=== PATIENT | male | born 1950 | race Caucasian/White ===

== ENCOUNTER → 2018-05-03 10:24 | Outpatient (CLI) | payer OTHER, SELFPAY | PROVIDERS: Family Provider Internal Medicine; PCP Internal Medicine; Referring Provider Internal Medicine; Visit Provider Internal Medicine | DX: I49.9 Cardiac arrhythmia, unspecified (principal) | CPT/HCPCS: 93225; 93226 ==

== ENCOUNTER → 2018-06-29 07:50 | Outpatient (CLI) | payer OTHER, SELFPAY ==
--- NOTE | 2018-06-29 07:52 | CDU_ITS ---
Reason For Study: Carotid stenosis Rt. Velocities/BP Lt. Velocities/BP Prox CCA 145.0/30.6 cm/sec. Prox CCA 114.0/27.5 cm/sec. Mid CCA 123.0/21.2 cm/sec. Mid CCA 119.0/22.0 cm/sec. Dist CCA 108.0/22.0 cm/sec. Dist CCA 108.0/23.6 cm/sec. Prox ICA 206.0/65.5 cm/sec. Prox ICA 103.0/27.5 cm/sec. Mid ICA 165.0/44.2 cm/sec. Mid ICA 102.0/23.6 cm/sec. Dist ICA 97.9/31.1 cm/sec. Dist ICA 74.6/25.1 cm/sec. Rt. ICA/CCA = 1.7. Lt. ICA/CCA = .87. Prox ECA 127.0/15.7 cm/sec. Prox ECA 99.8/16.5 cm/sec. Rt. Vert. 33.6/6.7 cm/sec. Lt. Vert. 28.3/8.3 cm/sec. Right Extracranial There is intimal thickening but no significant atherosclerotic plaque noted in the right common carotid artery. There is heterogeneous, irregular atherosclerotic plaque noted in the right internal carotid artery. There is intimal thickening but no significant atherosclerotic plaque noted in the right external carotid artery. Antegrade flow is noted in the right vertebral artery. Left Extracranial There is intimal thickening but no significant atherosclerotic plaque noted in the left common carotid artery. There is heterogeneous, irregular atherosclerotic plaque noted in the left internal carotid artery. The atherosclerotic plaque causes acoustic shadowing. There is no significant atherosclerotic plaque noted in the left external carotid artery. Antegrade flow is noted in the left vertebral artery. Procedure Carotid Duplex 14423. Exam performed in department. Interpretation Summary Moderate (50-69%) stenosis right extracranial internal carotid. Mild (<50%) stenosis left extracranial internal carotid. Flow within the vertebral arteries is antegrade bilaterally. Ordering Physician: Gloria Fontana Referring Physician: Gloria Fontana Performed By: Britany Beauchamp RVT
== END ==
PROVIDERS: Family Provider Internal Medicine; PCP Internal Medicine; Referring Provider Internal Medicine; Visit Provider Internal Medicine
DX: I65.23 Occlusion and stenosis of bilateral carotid arteries (principal)
CPT/HCPCS: 93880

== ENCOUNTER → 2018-09-11 08:42 | Outpatient (CLI) | payer OTHER, SELFPAY ==
--- NOTE | 2018-09-11 08:45 | US_ITS ---
STUDY: RENAL ULTRASOUND - COMPLETE REASON FOR EXAM: Male, 68 years old. 3 week history of right flank pain. TECHNIQUE: Ultrasound evaluation of the kidneys was performed with real-time and static shah-scale imaging. COMPARISON: Comparison is made with prior ultrasound the abdomen dated November 11, 2016. FINDINGS: RIGHT KIDNEY: Normal location of the right kidney, which is normal in size. The right kidney measures 11.2 cm x 5.1 cm x 5.3 cm. There is a normal cortex of the right kidney. The renal cortex measures 1.4 cm. There is no right renal mass or cyst. There are no right renal calculi. There is no right hydronephrosis. DISTAL RIGHT URETER: There is non-visualization of the distal right ureter. There is no demonstrated right ureterovesical junction calculus. There is a visualized right ureteral jet. LEFT KIDNEY: Normal location of the left kidney, which is normal in size. The left kidney measures 10.9 cm x 5.5 cm x 4.9 cm. There is a normal cortex of the left kidney. The renal cortex measures 1.6 cm. There is no left renal mass or cyst. There are no left renal calculi. There is no left hydronephrosis. DISTAL LEFT URETER: There is non-visualization of the distal left ureter. There is no demonstrated left ureterovesical junction calculus. There is a visualized left ureteral jet. BLADDER: The distended urinary bladder has a volume of 189 ml. The empty urinary bladder has a volume of 72 ml. There is a normal wall thickness of the distended urinary bladder. There is no demonstrated mass within the urinary bladder. There are no demonstrated bladder calculi. US/Kidney and Bladder IMPRESSION: Normal ultrasound of the kidneys and urinary bladder. Electronically Signed: Faizan Menendez, at 15:50 EDT , Service support ,
== END ==
PROVIDERS: Family Provider Internal Medicine; PCP Internal Medicine; Referring Provider Internal Medicine; Visit Provider Internal Medicine
DX: R10.9 Unspecified abdominal pain (principal)
CPT/HCPCS: 76770

== ENCOUNTER → 2018-10-10 14:26 | Outpatient (CLI) | payer SELFPAY ==
--- NOTE | 2018-10-10 14:30 | CT_ITS ---
STUDY: CARDIAC CALCIUM SCORING - CT CHEST REASON FOR EXAM: Male, 68 years old. Hyperlipidemia. Screening. RADIATION DOSAGE (If Supplied By Facility): CTDIvol = ( 12.19 ) mGy, DLP = ( 219.42 ) mGycm TECHNIQUE: Axial non-enhanced images were acquired through the heart for the sole purpose of measuring coronary artery calcium. Individualized dose optimization techniques were used for this CT. COMPARISON: None. FINDINGS: Visualized surrounding anatomy: Normal. Left Main Coronary Artery: 126 Left Anterior Descending Artery: 806 Left Circumflex Artery: 779 Right Coronary Artery: 29.8 Total Calcium Score: 1740 CT/Limited Chest CT w/CCTA IMPRESSION: A Calcium Score of 1740 places the patient in the approximate 99th percentile, based on the HE data calculator. Please go to: [email or web address].[email or web address] , for a description of the calculator. Electronically Signed: Ron Hicks, at 15:49 EDT Tel , Service support ,
[2018-10-10 14:45] VITALS: BP 149/65; PULSE 61; RESP 14; O2SAT 95; BMI 35.2
--- NOTE | 2018-10-10 17:33 | CA.SCORE ---
Calcium Scoring Date of Study:: 10/10/18 Coronary Calcium Scoring: High-resolution Computed Tomographic imaging of the chest was performed on 10/10/2018 with particular attention paid to the coronary arteries. Images from the examination were analyzed for the presence and extent of coronary artery calcification , using coronary calcium quantification software. The patient tolerated the procedure well and there were no complications. The results of the coronary calcification analysis are provided below. - Findings Left Main (LM): 126 Left Anterior Descending (LAD): 806 Left Circumflex (LCX): 779 Right Coronary Artery (RCA): 29.8 Total Agatston Score: 1,740.8 Percentile Rankin - Percentile rankin%: Greater than 90% of people of the same gender/similar age had the same/lower scores - Conclusion Calcium Scoring Interpretation: Calcium Score Interpretation 0 No identifiable atherosclerotic plaque. Very low cardiovascular disease risk. <5% chance of presence coronary artery disease A Negative Examination 1-10 Minimal Plaque burden. Significant coronary artery disease very unlikely. 11-100 Mild plaque burden. Likely mild or minimal coronary atherosclerosis. 101-400 Moderate plaque burden Moderate non-obstructive coronary artery disease highly likely. Over 400 Extensive plaque burden. High likelihood of at least one significant coronary stenosis (>50% diameter) Calcium Score: >400 High likelihood of at least one significant coronary stenosis - Continue cardiovascular risk factor evaluation care as deemed appropriate
== END ==
PROVIDERS: Family Provider Internal Medicine; PCP Internal Medicine; Referring Provider Internal Medicine; Visit Provider Internal Medicine
DX: E78.5 Hyperlipidemia, unspecified (principal)
CPT/HCPCS: 75571; 76380

== ENCOUNTER → 2018-11-22 14:53 | Outpatient (CLI) | payer OTHER, SELFPAY ==
[2018-11-22 13:29] VITALS: BMI 35.2
[2018-11-22 15:36] LABS: Absolute Lymphocyte Count 1.54 X10^3/uL (0.83-4.51); Absolute Neutrophil Count 4.8 X10^3/uL (2.0-7.7); Basophil# 0.05 X10^3/uL; Basophil% 0.7 % (0-1); Eosinophil# 0.03 X10^3/uL; Eosinophils% 0.4 % (0-5); Hematocrit 51.1 % (40-54); Hemoglobin 17.7 g/dL (13.0-16.5); Lymphocyte # 1.54 X10^3/ul (4.0); Lymphocyte % 22.4 % (19-41); Mean Corp Hgb Conc 34.6 g/dL (32-36); Mean Corpuscular Hgb 30.5 pg (27.0-32.0); Mean Corpuscular Volume 88.1 fL (80-94); Mean Platelet Vol. 9.7 fl (6.2-12.0); Monocyte# 0.37 X10^3/uL; Monocyte% 5.4 % (0-10); NRBC Flagged by Analyzer 0 % (0-5); Neutrophil # 4.82 X10^3/uL (2.7-7.7); Neutrophil % 70.4 % (47-70); Platelet Count 150 K/mm3 (150-450); RBC Distribution Width CV 12.2 % (11.6-14.6); RBC Distribution Width SD 39.6 fl (35.1-43.9); White Blood Count 6.9 K/mm3 (4.4-11.0)
[2018-11-22 16:35] LABS: Anion Gap 9 (5-15); BUN 14 mg/dL (7-18); BUN/Creat Ratio 13.6 RATIO (10-20); Calcium,Total 9.2 mg/dL (8.5-10.1); Chloride 107 mmol/L (98-107); Creatinine, Serum 1.03 mg/dL (0.70-1.30); EST Glomerular Filtration Rate 76 mL/min (>60); Est Glom Filt Rate - Afr Amer 92 mL/min (>60); Glucose 111 mg/dL (74-106); Potassium 4.2 mmol/L (3.5-5.1); Sodium Level 142 mmol/L (136-145)
== END ==
PROVIDERS: Family Provider Internal Medicine; PCP Internal Medicine; Referring Provider Internal Medicine Cardiovascular Disease; Visit Provider Internal Medicine Cardiovascular Disease
DX: R93.1 Abnormal findings on diagnostic imaging of heart and coronary circulation (principal)
CPT/HCPCS: 36415; 80048; 85025

== ENCOUNTER 2018-11-27 10:30 | Day surgery (SDC) | payer OTHER, SELFPAY ==
[2018-11-22 13:29] VITALS: BMI 35.2
--- NOTE | 2018-11-22 14:50 | RAD_ITS ---
STUDY: X-RAY CHEST REASON FOR EXAM: Male, 68 years old. Substernal chest pain TECHNIQUE: PA and lateral views of the chest. COMPARISON: 11/16/2013 FINDINGS: The lungs are clear and expanded. There is no demonstrated pleural abnormality. Normal size heart. Normal mediastinum and reginald. Normal visualized pulmonary arteries. Normal visualized aortic arch and descending thoracic aorta. Normal visualized thoracic spine. Normal visualized ribs, clavicles, and shoulders. There is no demonstrated abnormality of the visualized soft tissue structures of the upper abdomen. RAD/Chest PA and Lateral IMPRESSION: Normal x-ray examination of the chest. Electronically Signed: Brooks Glaser MD at 15:04 EDT , Service support ,
--- NOTE | 2018-11-27 08:50 | HP.PCM_ITS ---
Problem List (1) Stenosis of right carotid artery Status: Chronic (2) Elevated coronary artery calcium score Status: Acute (3) Atherosclerotic heart disease of [place] coronary artery without angina pectoris Status: Chronic (4) Mixed hyperlipidemia Status: Chronic History and Physical Date of Admission: 11/27/18 MR#: [id number] Acct: [id number] Name: ANGELO DÍAZ Rep #: [id number] : 1950 Provider: Lito HERNANDEZ Age/Sex: 68/M Location: [facility] [place] Status: Signed HPI HPI History of Present Illness Details: Pleasant 68-year-old man with a significant family history of coronary artery disease, hyperlipidemia, carotid stenosis, diabetes mellitus who underwent a coronary calcium score as part of his routine physical. He was noted to have a significantly elevated calcium score of over 1700 placing him above the 90th percentile for plaque burden which was at least moderate. He has been on lipid-lowering medication and has been checking his blood pressures at home which have been in the normotensive range. He also had a carotid ultrasound performed with demonstrated moderate 50 to 69% stenosis noted in the right extracranial carotid artery. He is here today for a heart cath. He has had no dizziness or diaphoresis no near syncope or syncope though he has had some shoulder discomfort. Intake Vitals signs: see chart Allergies No Known Allergies Allergy (Verified 11/22/18 13:33) Medications aspirin 81 mg tablet,delayed release 81 mg PO DAILY 11/16/18 [History Confirmed 11/22/18] coenzyme Q10 100 mg capsule 100 mg PO DAILY 11/16/18 [History Confirmed 11/22/18] omega-3 fatty acids 1,000 mg capsule 2,000 mg PO DAILY cap 11/16/18 [History Confirmed 11/22/18] simvastatin 40 mg tablet 40 mg PO QHS 11/16/18 [History Confirmed 11/22/18] arginine HCl (L-arginine) 1,000 mg tablet 2,000 mg PO TID tab 11/22/18 [History Confirmed 11/22/18] cholecalciferol (vitamin D3) 2,000 unit capsule 4,000 unit PO DAILY cap 11/22/18 [History Confirmed 11/22/18] lactobacillus combination no.9 4 billion cell capsule 4,000 mmu cells PO DAILY 11/22/18 [History Confirmed 11/22/18] [facility] Medical History Stenosis of right carotid artery (Chronic) Elevated coronary artery calcium score (Acute) Atherosclerotic heart disease of [place] coronary artery without angina pectoris (Chronic) Mixed hyperlipidemia (Chronic) Obesity (Chronic) Actinic keratosis (Chronic) Bruit of right carotid artery (Chronic) Erectile dysfunction (Chronic) SUSHANT (obstructive sleep apnea) (Chronic) Polycythemia (Chronic) Thrombocytopenia (Chronic) Type 2 diabetes mellitus (Chronic) Arrhythmia (Inactive) Surgical History History of oral surgery (Resolved) History of vasectomy (Resolved) Family History Father Diabetes Heart disease Hypertension High cholesterol COPD (chronic obstructive pulmonary disease) Sister Kidney disease High cholesterol Brother High cholesterol Hypertension SUSHANT (obstructive sleep apnea) Mother Diabetes Heart disease CVA (cerebral vascular accident) TIA (transient ischemic attack) Social History (Updated 11/22/18 @ 14:04 by Jerald Sanchez MD) household members: spouse, other details: adult son current occupational status: retired [email or web address] [place] Smoking Status: Former smoker how long ago did patient quit smokin alcohol intake: current alcohol intake frequency: a few times a month substance use type: does not use caffeine: Yes (2 drinks/day) what type of physical activity do you participate in: none ROS Const Const: Negative for fatigue, weakness, headache(s), frequent falls, difficulty sleeping or excessive sweating Eyes Eyes: Negative for loss of peripheral vision, transient loss of vision, blurry vision, double vision or tunnel vision ENT ENT: Negative for headache(s), dizziness, Nosebleed/epistaxis or balance problems Cardio Chest Pain: No Palpitations: No Edema: None Muscle aches with walking: None Resp Respiratory: Negative for SOB with activity, SOB at rest, SOB orthopnea\SOB lying down, Cough or paroxysmal nocturnal dyspnea GI GI: Negative nausea, vomiting, heartburn or black,tarry stools : Negative for hematuria Musc Musc: Negative for muscle aches/ myalgia, muscle weakness, joint pain or balance problems Skin Skin: Negative non-healing lesions, rash or unusual bruising Neuro Neuro: Negative for dizziness, lightheadedness, near syncope, syncope, orthostatic symptoms, frequent falls, headache(s), weakness, blurry vision, double vision or lack of coordination [place] Hematologic/Lymphatic: Negative for easy bleeding or easy bruising Endo Endo: Negative for fatigue, excessive sweating or increased thirst/drinking Psych Psych: Negative for anxiety or depression Allergy Allergy/Immunology: Negative for hives, Negative for rash Cardiology Exam Const Appearance: cooperative, healthy appearing, no acute distress, well developed and well groomed Nutritional Appearance: average body habitus and well nourished Orientation: alert, awake and oriented x3 Head Head: normal to inspection, normocephalic and atraumatic Ears: hearing grossly normal bilaterally and external ears normal Nose: external nose normal, nares normal, nasal mucous membranes and turbinates normal, septum normal, no nasal discharge Face and Sinus: face symmetric Mouth: oral mucosae normal, tongue normal, oropharynx normal and moist mucous membranes Teeth and gingiva: dentition normal Throat: posterior oropharynx normal, tonsils normal and uvula midline Eyes General: appearance normal, both eyes and all related structures Eyelids: eyelids normal Conjunctivae: conjunctivae normal Pupils: PERRL, normal by confrontation and accommodation normal EOM: EOM intact bilaterally Neck Neck: normal visual inspection, trachea midline and no JVD JVD: +5 Carotids: normal carotid upstroke and bounding pulses Chest Chest inspection: normal inspection of the chest, symmetric chest movement and normal respiratory effort Auscultation: Bilateral: Clear to Auscultation Cardio Palpation: normal PMI Rate: regular rate Rhythm: regular rhythm Heart sounds: S1 normal, S2 normal and normal, physiologic split S2; negative rub, gallop or murmur GI GI: normal to inspection, soft, no hepatosplenomegaly and bowel sounds present Neuro General: alert, awake, oriented x3, gait normal, moves all extremities and no focal sensory deficit Skin Skin: no rashes or lesions noted Extremities Pulses: Normal: Right Femoral Pulse, Left Femoral Pulse, Right Dorsalis Pedis Pulse, Left Dorsalis Pedis Pulse, Right Posterior Tibial Pulse, Left Posterior Tibial Pulse, Right Radial Pulse, Left Radial Pulse Lower Extremity Edema: None: Bilateral Musculoskel Musculoskeletal: No joint tenderness Psych Psychological: normal affect Assessment & Plan Problems 1. Elevated coronary artery calcium score R93.1 Plan He does have a markedly elevated coronary calcium score placing him above the 90th percentile. Since he is a diabetic and his elevated score, will proceed with heart cath. He will continue with his aggressive risk factor modification. He will follow up according after his heart cath
--- NOTE | 2018-11-27 10:39 | CL.D_ITS ---
Patient Name: ANGELO DÍAZ Study Date: 11/27/2018 Performing: Jerald Sanchez MD Ht: 70.07 inches 178 cm : 1950 Wt: 244.71 lbs 111 kg Age: 68 Gender: male BSA: 2.28 PROCEDURE(S) PERFORMED [id number]/LV CLINICAL PROFILE AND INDICATIONS Indications: Suspected CAD Heart Failure: None Stress/Imaging Stress/Image Study Performed: No CAD Presentations: No Sxs, no angina. CONCLUSIONS Dominant left circumflex artery with severe triple-vessel disease involving the proximal to mid LAD, distal LAD, distal circumflex artery and a nondominant right coronary artery all with high-grade sten osis and preserved ejection fraction. RECOMMENDATIONS Surgery consult for coronary revascularization DESCRIPTION OF PROCEDURE The patient arrived to the procedure lab. The risks and benefits of the procedure as well as a full d escription of our services here and current unavailability of surgical backup were fully explained to the patient and/or their significant other prior to the catheterization. The Timeout was completed, verifying the correct patient and procedure. The patient's procedural site was prepped and draped in the usual fashion. Local anesthetic was given subcutaneously to right radial region with Lidocaine 2% . Using a modified Seldinger technique, arterial access was obtained via the right radial artery, a 6 Fr sheath was inserted. Left Coronary Artery selective angiography was performed in multiple views u sing a 5 Fr. 4.0 [place] catheter. Right Coronary Artery selective angiography was then performed in mu ltiple views using a 5 Fr. 4.0 [place] catheter. Left Ventriculography was performed in JOHNSON projection using a 5 Fr. [place] catheter. LV to AO pullback pressures were then recorded.The arterial sheath was pulled and a TR Band was applied for hemostasis CORONARY ANGIOGRAPHY DOMINANCE: Left Dominant LEFT HEART ASSESSMENT Left Ventricular Ejection Fraction: by LV Gram 65 % Normal LV wall motion Normal Left Ventricular systolic function LEFT MAIN: Mild calcification LEFT ANTERIOR DESCENDING ARTERY: MID LAD: 70 % Stenosis, Moderate calcification DISTAL LAD: 75 % Stenosis DIAGONAL 1: Ostial - 80 % Stenosis CIRCUMFLEX ARTERY: OM 3: Proximal - 85 LT PDA: Left PDA: Proximal - 90 % Stenosis RIGHT CORONARY ARTERY: MID RCA: 95 % Stenosis COMPLICATIONS No Complications PROCEDURE MEDICATIONS Fentanyl 50 mcg IV Versed 1 mg IV Oxygen: 2 L/min via nasal cannula SUMMARY OF HEMODYNAMIC DATA Time AIR REST ECG 09:23:12 AO 122/91 (105) SA 10:12:55 LV 137/22, 28 10:21:26 LV 137/21, 24 10:21:33 LV 154/7, 25 10:22:29 LV 158/7, 26 10:22:36 LVp 156/8, 28 10:22:47 AOp 147/85 (111) 10:22:52 Signed By Jerald Sanchez MD On 11/27/2018 10:38:33 Jerald Sanchez MD
== END 2018-11-27 12:40 | disposition home or self-care (01) ==
LOC: CLSP 11-28 16:10
PROVIDERS: Family Provider Internal Medicine; PCP Internal Medicine; Referring Provider Internal Medicine Cardiovascular Disease; Visit Provider Internal Medicine Cardiovascular Disease
DX: I25.10 Atherosclerotic heart disease of native coronary artery without angina pectoris (principal); R93.1 Abnormal findings on diagnostic imaging of heart and coronary circulation; E78.2 Mixed hyperlipidemia; I65.21 Occlusion and stenosis of right carotid artery; E11.9 Type 2 diabetes mellitus without complications; G47.33 Obstructive sleep apnea (adult) (pediatric); N52.9 Male erectile dysfunction, unspecified; D75.1 Secondary polycythemia; Z79.82 Long term (current) use of aspirin; Z82.49 Family history of ischemic heart disease and other diseases of the circulatory system; Z87.891 Personal history of nicotine dependence
CPT/HCPCS: 71046; 93458; 99152; 99153; J7040; Q9967; C1769; C1894

== ENCOUNTER → 2019-01-05 09:36 | Outpatient (CLI) | payer OTHER, SELFPAY ==
[2018-11-22 13:29] VITALS: BMI 35.2
--- NOTE | 2019-01-05 09:42 | RAD_ITS ---
STUDY: X-RAY - THORACIC SPINE REASON FOR EXAM: Male, 68 years old. Low/mid back pain. TECHNIQUE: 3 view(s) of the thoracic spine were obtained. COMPARISON: 11/22/2018 CXR FINDINGS: Normal kyphosis of the thoracic spine. There is no substantial scoliosis. Multilevel degenerative changes. Prominent anterior osteophytes mid and lower thoracic spine. No acute soft tissue abnormality. RAD/Thoracic Spine 3 Views IMPRESSION: No acute osseous abnormality. Prominent degenerative changes mid and lower thoracic spine. Electronically Signed: Saulo Vitale, at 23:45 EDT Tel , Service support ,
== END ==
PROVIDERS: Family Provider Internal Medicine; PCP Internal Medicine; Referring Provider Internal Medicine; Visit Provider Internal Medicine
DX: R10.9 Unspecified abdominal pain (principal)
CPT/HCPCS: 72072

== ENCOUNTER → 2019-02-27 08:45 | Outpatient (CLI) | payer OTHER, SELFPAY ==
[2018-11-22 13:29] VITALS: BMI 35.2
--- NOTE | 2019-02-27 09:19 | CR.ITP_ITS ---
General Information - General Information Admitting Diagnosis: S/P CABG - Education/Goals Barriers to Learning: Vision Impairment Individual Counseling: Initial Assessment: Abnormal Cholesterol Levels, High Blood Pressure, Overweight/Obesity, Diabetes Cardiac Rehabilitation Goals: 1. Maintain the individual as the primary focus of care. 2. To improve the patient's quality of life. 3. Identification of cardiac risk factors and provide cardiac risk factor management. 4. Enhance the psychosocial status of the patient. 5. Reconditioning enough to allow the patient to resume customary activities. 6. Control symptoms of cardiac disease Scale for measuring improvement of personal goals: Enter appropriate number in Comments. 2 = Unchanged. 3 = Slightly Better. 4 = Moderate Improvement. 5 = Met my Goal Personal Goals: Initial Assessment: Improve muscle strength and endurance, Improve diet and eating habits (eat healthier), Control risk factors (learn risk factor modification) Exercise - Initial Assessment - Visit Date of Eval: 02/27/19 Session #:: 0 - EVALUATION & ASSESSMENT - Stages of Change Stages of Change:: Action - Physician Prescribed Exercise Modalities: Treadmill, Airdyne, NuStep Frequency (days/week): 3x/week for 12 weeks [36 sessions] Duration (Minutes):: 30-45 Intensity: 60-80% age predicted maximum heart rate reserve METs - Progression: 0.5-1.0 MET, RPE 11-14 WEEK: 3 Target Heart Rate:: 99-129 - Hypertension Do any of the following apply?: Yes, Medication Resting Blood Pressure:: 110/68 - Intervention Home Exercise/Activity Goal:: Moderate Exercise 30 min/day x 5 days/wk - Education Goals:: Warm-up, RPE CLAUDIA Scale, S/S, Safe Exercise, Self-Monitoring - Exercise Program Goals Exercise Program Goals: Aerobic Activity >30 min Nutrition - Initial Assessment - Program Goals Nutrition Program Goals: LDL <70. Total Cholesterol <200. HDL >45. Triglycerides <150. HgbA1C <7%. BMI <25 - Visit Date of Assessment:: 02/27/19 - Stages of Change Stages of Change:: Action - Lipids Total Cholesterol (mg/dL) Goal = less than 200 mg/dL: 71 HDL Cholesterol (mg/dL) Goal = less than 45 mg/dL: 39 LDL Cholesterol (mg/dL) Goal = less than 70 mg/dL: 20 - Diabetes Diabetes:: Yes Insulin: Yes Non-Insulin Dependent?: Yes Do you monitor your blood sugar at home?: Yes - Weight Management Height: 5 ft 10 in Weight:: 245 lb Body Fat %:: 35.2 - Intervention Referral to dietitian:: Yes - Refferal for Why WEight PRogram due to BMI >35%, DM TYpe II Referral to Diabetic Clinic:: Yes - Type II DM off insulin now, metformin dose decreased 50%. Will attend diet classes:: Yes - Education Gave educational materials for:: Signs & symptoms of hypoglycemia, Signs & symptoms of hyperglycemia, Relate diabetes to coronary artery disease, Healthy eating Tobacco - Initial Assessment - Program Goals Tobacco Program Goals: Complete smoking cessation. Attend education classes. Improve Knowledge Test score - Stage of Change Stages of Change:: Action - Learning Barriers Learning Barriers: Vision, Ready to Learn - Family Support Do you have family support?: Yes - Tobacco Use Tobacco Use: Non-smoker Do you use smokeless tobacco?: No - Intervention Smoking Cessation Referral:: No Individual Education/Counseling:: No Education Schedule Given:: No - Education Attended class for:: Treating Heart Disease, How The Heart Works, What it means to have Heart Disease, How Coronary Artery Disease is Diagnosed, Heart Procedures, What Heart Medications Do, Risk Factors & Modifications, Living an Active Life, Nutrition, Emotions & Heart Disease, Stress Management & Relaxation, Sleep Disorders & Heart Disease Psychosocial - Initial Assess - Target Goals Target Goals: Assess presence or absence of depression. Using a valid screening tool, maximizes coping skills. Positive support system - Stages of Change Stages of Change:: Action - Psychosocial Test Tool Used:: HANDS Depression Questionnaire - Intervention PS - Interventions: Yes Attend Stress Management Classes, No Referral to Mental Health, No Referral to [facility] Case Management, No Referral to Physician, No Uses Stress Management Skills - Education Gave educational materials for:: Coping techniques, Signs & symptoms of depression, Stress management, Relaxation techniques - Patient/Program Goal Preventative Medication(s):: Aspirin, TIMOTHY inhibitor, Clopidogrel, Beta albin, Statin/lipid - Assistive Devices Assistive Devices:: None Fall Risk Assessed:: Yes Patient Health Questionnaire Initial Assessment 1. Little interest or pleasure in doing things: Not at all 2. Feeling down, depressed, or hopeless: Not at all 3. Trouble falling or staying asleep, or sleeping too much: Not at all 4. Feeling tired or having little energy: Not at all 5. Poor appetite or overeating: Not at all 6. Feeling bad about yourself -- or that you are a failure or have let yourself or your family down: Not at all 7. Trouble concentrating on things, such as reading the newspaper or watching television: Not at all 8. Moving or speaking so slowly that other people could have noticed. Or the opposite - being so fidgety or restless that you have been moving around a lot more than usual: Not at all 9. Thoughts that you would be better off , or of hurting yourself in some way: Not at all How difficult have these problems made it for you to do your work, take care of things at home, or get along with other people?: Not difficult at all Total Score: 0 ROBETR-Q SV Test - Statements CAD is a disease of the arteries in the heart: False Examples of risk factors for heart disease: True Angina is chest pain or discomfort: True The benefits of resistance training include: True Eating more meat and dairy products: False Anti-platelet medications such as aspirin are important: True The only effective way to manage stress: False An exercise warm-up slowly increases heart rate: I Don't Know Prepared, processed foods usually have high sodium: True Depression is common after a heart attack: True The statin medications lower cholesterol: True To control blood pressure, lower the amount of sodium: True If someone gets chest discomfort during walking: False Transfats are partially hydrogenated vegetable oils: True Sleep apnea that is not treated increases the risk: I Don't Know To control cholesterol, one should become a vegetarian: False Someone knows if he/she is exercising at the right level: True Diabetes cannot be prevented with exercise & health eating: True Stress is a large risk for heart attack: True A diet that can help lower blood pressure is rich in: True - Total Score Total Correct Responses: 17 Self-Efficacy Initial Assessment We would like to know how confident you are in doing certain activities. Please select your confidence level for:: Select your confidence level for the following using the scale 1-10 where 1 is not at all confident and 10 is totally confident. Your score is the average of all 6 responses. Fatigue: How confident are you that you can keep the fatigue caused by your disease from interfering with the things you want to do? Select Number: 10 Physical Discomfort or Pain: How confident are you that you can keep the physical discomfort or pain of your disease from interfering with the things you want to do? Select Number: 10 Emotional Distress: How confident are you that you can keep the emotional distress caused by your disease from interfering with the things you want to do? Select Number: 10 Other Symptoms or Health Problems: How confident are you that you can keep other symptoms or health problems from interfering with the things you want to do? Select Number: 10 Different Tasks and Activities: How confident are you that you can do the different tasks and activities needed to manage your health condition so as to reduce your need to see a doctor? Select Number: 10 Medication: How confident are you that you can do things other than just taking medication to reduce how much your illness affects your everyday life? Select Number: 10 Total Score:: 10 Nutrition Survey - Nutrition Survey Instructions Scoring Instructions: Scoring is as follows: Yes = 1 points. No = 0 point. Patient score that is >/=12 is considered to be at potential nutritional risk and could benefit from a referral to a registered dietitian. - Nutrition Survey Initial Have you lost >10 lbs over the past 2 months without trying?: Yes Are you following a special diet at home for diabetes, low fat, or low salt?: Yes Are you interested in meeting with a dietitian for help understanding your diet?: No Do you eat less than 3 meals a day?: No Do you eat fatty meats (shelby, sausage, ribs, etc), fried foods, desserts, large amounts of salad dressings, margarine, butter, or cheese most days?: No Do you have food allergies? [Enter types in comment field]: No Do you eat in restaurants more than 3 times a week?: No Do you season food with salt, seasoning salt, or garlic salt?: No Do you used canned, boxed, frozen meals, or soups, seasoning packets?: No Total Score:: 2
--- NOTE | 2019-02-27 09:19 | PCM.CR.HP2 ---
CR - History & Physical - General Arrival date:: 02/27/19 Arrival time:: 08:45 Date of Referral:: 01/18/19 Date of CR Evaluation:: 02/27/19 Referring Physician: DR. MENDIETA Primary Diagnosis: CAGB X3 - History of Present Cardiac Event Onset Date: Enter Onset Date of cardiac illnesses in Comment field below Current stable Angina Pectoris:: No Acute Myocardial Infarction within 12 months:: No Coronary Artery Bypass Graft:: Yes - X3 Heart valve replacement or repair:: No PTCA or coronary stenting:: No Heart or Heart-Lung Transplant:: No Type of Symptoms:: NONE. DUE TO FAMILY HX, HAD CALCIUM SCORE AND WENT ON TO HEART CATH Interventions with present event:: CABG X3 Were there any complications?: NONE - Medications Home Medications: Ambulatory Orders Medication Instructions Recorded aspirin 81 mg tablet,delayed 81 mg PO DAILY 11/16/18 release coenzyme Q10 100 mg capsule 100 mg PO DAILY 11/16/18 omega-3 fatty acids 1,000 mg 2,000 mg PO DAILY cap 11/16/18 capsule simvastatin 40 mg tablet 40 mg PO QHS 11/16/18 cholecalciferol (vitamin D3) 2,000 4,000 unit PO DAILY cap 11/22/18 unit capsule lactobacillus combination no.9 4 4,000 mmu cells PO DAILY 11/22/18 billion cell capsule metoprolol tartrate 25 mg tablet 75 mg PO BID tab 02/26/19 - Allergies Allergies/Adverse Reactions: Allergies No Known Allergies Allergy (Verified 11/22/18 13:33) - Sleep Disorder Evaluation Hx of Sleep Apnea: Yes STOP Results: PT CURRENTLY WEARS BIPAP Advanced Directives - Advanced Directives Power of Equipment Maintenance Technician: Yes - THEY SHOULD HAVE COPIES HERE AT [facility] Living Will: Yes Advance Directives on File: Yes - /PT TO CHECK AND MAKE SURE WE HAVE COPIES DNR Order?:: No Past Medical History - Past Medical Illness Medical History: Past Medical History (Last Updated 02/26/19 @ 21:11 by Brandee Doll) Atherosclerotic heart disease of [place] coronary artery without angina pectoris (Chronic) I25.10 CABG x 3: SANCHEZ-LAD, Free MAKENNA-D1, SVG-OM3 01/18/19 Postoperative atrial fibrillation (Resolved) Onset Date: 01/21/19 I97.89, I48.91 Stenosis of right carotid artery (Chronic) I65.21 Mixed hyperlipidemia (Chronic) E78.2 Actinic keratosis L57.0 Bruit of right carotid artery R09.89 Erectile dysfunction N52.9 SUSHANT (obstructive sleep apnea) G47.33 uses Cpap Obesity E66.9 Polycythemia D75.1 Thrombocytopenia D69.6 Type 2 diabetes mellitus E11.9 Arrhythmia (Inactive) I49.9 Elevated coronary artery calcium score (Inactive) R93.1 - Past Surgical History Surgical History: Past Surgical History (Last Updated 02/26/19 @ 21:04 by Brandee Doll) H/O coronary artery bypass surgery (Chronic) Onset Date: 01/18/19 Z95.1 CABG x 3: SANCHEZ-LAD, Free MAKENNA-D1, SVG-OM3 01/18/19 History of left heart catheterization Onset Date: 11/27/18 Z98.890 History of oral surgery Z98.890 History of vasectomy Z98.52 - Family History Summary Family History: Family History (Last Reviewed 11/22/18 @ 13:58 by Jerald Mendieta MD) Father Diabetes Heart disease Hypertension High cholesterol COPD (chronic obstructive pulmonary disease) Sister Kidney disease High cholesterol Brother High cholesterol Hypertension SUSHANT (obstructive sleep apnea) Mother Diabetes Heart disease CVA (cerebral vascular accident) TIA (transient ischemic attack) Social History - Smoking History Smoking Status: Former smoker Years Smokin Hx Tobacco Use: Yes - Alcohol Use Alcohol Usage: Yes - VERY RARE - Substance Abuse Hx Substance Use: No - Occupation Occupation (List type of work in comments):: Retired - Hobbies, Recreation, Social Activities Hobbies: Woodworking, Reading, Watch TV, Walking, Other - PAINTING Recreational Activities: I am able to engage in most, but not all activities Social Environment - Status Marital Status: - Current Living Arrangements Living Environment:: Spouse - Children How many children do you have?: 1 Do any of your children live nearby?: Yes - [place] - Safety Do you feel safe in your surroundings?: Yes - Assistance Do you need any assistance at home?: NONE Review of Systems - Review of Systems Hints: Right click = Denies ([place]ash). Left click = Reports ([place]) Review of Present Symptoms: Reports: Operative Discomfort - SLIGHT DISCOMFORT WHEN SNEEZING AT INCISION SITE, Wound Healing - WELL APPROXIMATED, WITHOUT REDNESS, GLUE PEALING, Heart Arrhythmia/Irregularities - HAD SHORT PERIOD OF A FIB POST OP BUT NONE SINCE, Appetite - Normal, Appetite - Special Diet - BEFORE SURGERY, DM WAS DIET CONTROLLED (AIC 5.5). NOW ON METFORMIN, Sleep - Normal. Denies: Shortness of Breath at Rest, Shortness of Breath with Exertion, PVD, Angina, Dizziness/Lightheadedness, Fatigue - Pain Is Patient Pain Free?: Yes Risk Factor Assessment - Chief Complaint Chief Complaint: CURRENT CAGB X3 PT. WHO PRESENTS TODAY FOR INTIAL CR EVALUATION - Vital Signs Temperature: 98.6 F Respiratory Rate: 16 Pulse Ox: 97 Blood Pressure: 110/68 Nailbeds:: PNK - Pulse Pulse Rate: 58 Pulse Rhythm: Regular - Blood Cholesterol/Lipids Total Cholesterol (mg/dL) Goal = less than 200 mg/dL: 71 HDL Cholesterol (mg/dL) Goal = less than 40 mg/dL: 39 LDL Cholesterol (mg/dL) Goal = less than 70 mg/dL: 20 - Diabetes Diabetic History: Type II Nutrition Referral for Diabetes: No - Obesity Height: 5 ft 10 in Weight:: 245 lb Weight in Pounds: 245.0 lbs Weight Source: Stated by Patient Body Mass Index (BMI): 35.2 Nutritional Referral for Obesity: No - Physical Inactivity Physical Inactivity: Recreational activity - Risk Stratification Risk Guidelines: Lowest Risk: Risk Factor for Smoking, Risk Factor for Dyslipidemia, Risk Factor for Diabetes, Risk Factor for Hypertension, Risk Factor for Sedentary Lifestyle, Risk Factor for Depression, Highest Risk: Risk Factor for Obesity - For Smoking Smoking Risk Guidelines: Smoking Low Risk: None or quit greater than 6 months ago. Smoking Moderate Risk: Smoker or quit 6 months or less ago. Smoking High Risk: Smoker - For Dyslipidemia Dyslipidemia Risk Guidelines: Low Risk: Moderate Risk: High Risk: 15-25% fat 25.1-29% fat >/= 30% fat. <7% sat fat 7-9% sat fat >9% sat fat. <150 mg chol 150-299 mg chol >/= 300 mg chol. LDL <100 LDL 100-129 LDL >/= 130. Chol/HDL ratio <5.0 Chol/HDL ratio 5.0-6.0 Chol/HDL ratio >6.0. Triglycerides <100 Triglycerides 100-149 Triglycerides >/= 150 - For Diabetes Mellitus Diabetes Risk Guidelines: Diabetes Low Risk: HgA1c <6.5% and/or FBG <120. Diabetes Moderate Risk: HgA1c 6.6-7.9% and/or FBG 120-180. Diabetes High Risk: HgA1c >/= 8% and/or FBG >180 - For Obesity/Overweight Obesity/Overweight Risk Guidelines: Obesity Low Risk: BMI <25.0. Obesity Moderate Risk: BMI 25-29.9. Obesity High Risk: BMI >/= 30.0 - For Hypertension Hypertension Risk Guidelines: Hypertension Low Risk: Systolic <120 and Diastolic <80. Hypertension Moderate Risk: Systolic 120-139 and Diastolic 80-89. Hypertension High Risk: Systolic >/= 140 and Diastolic >/= 90 - For Sedentary Lifestyle Sedentary Lifestyle Risk Guidelines: Sedentary Lifestyle Low Risk: >/= 1,500 kcal/week. Sedentary Lifestyle Moderate Risk: 700-1,499 kcal/week. Sedentary Lifestyle High Risk: < 700 kcal/week - For Depression Depression Risk Guidelines: Depression Low Risk: Not clinically depressed. Depression Moderate Risk: Mildly depressed. Depression High Risk: Clinically depressed - Family History Family History: Family History (Last Reviewed 11/22/18 @ 13:58 by Jerald Mendieta MD) Father Diabetes Heart disease Hypertension High cholesterol COPD (chronic obstructive pulmonary disease) Sister Kidney disease High cholesterol Brother High cholesterol Hypertension SUSHANT (obstructive sleep apnea) Mother Diabetes Heart disease CVA (cerebral vascular accident) TIA (transient ischemic attack) Motivation - Motivation to Participate On a scale of 1 to 10, how prepared are you to commit to attending program?: 10 What do you see as barriers to successfully being able to complete the program?: NONE What do you see as the benefits of succesfully completing the program? In other words, what do you hope to get out of participating in the program?: GET HEALTHY I CAN BE Are there issues you are dealing with that will interfere with completing the program?: NONE Do you have a spouse or signficant other, family or friends who will help support you to complete the program?: SPOUSE
[2019-02-27 09:47] VITALS: BP 110/68; PULSE 58; RESP 16; TEMP 37; O2SAT 97; BMI 35.2
[2019-02-27 10:15] VITALS: BP 110/68
== END ==
PROVIDERS: Family Provider Internal Medicine; PCP Internal Medicine; Referring Provider Thoracic Surgery (Cardiothoracic Vascular Surgery); Visit Provider Thoracic Surgery (Cardiothoracic Vascular Surgery)
DX: Z95.1 Presence of aortocoronary bypass graft (principal)

== ENCOUNTER 2019-02-28 06:36 | Outpatient (RCR) | payer OTHER, SELFPAY ==
[2019-02-27 09:47] VITALS: BMI 35.2
== END 2019-03-01 23:59 ==
LOC: CR 06:36
PROVIDERS: Family Provider Internal Medicine; PCP Internal Medicine; Referring Provider Internal Medicine Cardiovascular Disease; Visit Provider Internal Medicine Cardiovascular Disease
DX: Z95.1 Presence of aortocoronary bypass graft (principal)
CPT/HCPCS: 93798

== ENCOUNTER 2019-03-28 10:15 | Outpatient (RCR) | payer OTHER, SELFPAY ==
[2019-02-28 12:39] VITALS: BMI 32.5
== END 2019-03-31 23:59 ==
LOC: CR 10:15
PROVIDERS: Family Provider Internal Medicine; PCP Internal Medicine; Referring Provider Internal Medicine Cardiovascular Disease; Visit Provider Internal Medicine Cardiovascular Disease
DX: Z95.1 Presence of aortocoronary bypass graft (principal)
CPT/HCPCS: 93798

== ENCOUNTER 2019-04-30 10:15 | Outpatient (RCR) | payer OTHER, SELFPAY ==
[2019-02-28 12:39] VITALS: BMI 32.5
== END 2019-05-01 23:59 ==
LOC: CR 10:15
PROVIDERS: Family Provider Internal Medicine; PCP Internal Medicine; Referring Provider Internal Medicine Cardiovascular Disease; Visit Provider Internal Medicine Cardiovascular Disease
DX: Z95.1 Presence of aortocoronary bypass graft (principal)
CPT/HCPCS: 93798

== ENCOUNTER 2019-05-28 10:15 | Outpatient (RCR) | payer OTHER, SELFPAY ==
[2019-02-28 12:39] VITALS: BMI 32.5
== END 2019-06-01 23:59 ==
LOC: CR 10:15
PROVIDERS: Family Provider Internal Medicine; PCP Internal Medicine; Referring Provider Internal Medicine Cardiovascular Disease; Visit Provider Internal Medicine Cardiovascular Disease
DX: Z95.1 Presence of aortocoronary bypass graft (principal)
CPT/HCPCS: 93798

== ENCOUNTER → 2019-07-20 08:47 | Outpatient (CLI) | payer OTHER, SELFPAY ==
[2019-02-28 12:39] VITALS: BMI 32.5
--- NOTE | 2019-07-20 08:50 | CDU_ITS ---
Reason For Study: CAROTID STENOSIS Rt. Velocities/BP Lt. Velocities/BP Prox CCA 163.1/24.3 cm/sec. Prox CCA 133.2/27.2 cm/sec. Mid CCA 110.7/21.2 cm/sec. Mid CCA 113.1/23.6 cm/sec. Dist CCA 125.3/21.2 cm/sec. Dist CCA 89.3/21.7 cm/sec. Prox ICA 175.1/43.0 cm/sec. Prox ICA 105.8/30.9 cm/sec. Mid ICA 147.8/29.0 cm/sec. Mid ICA 89.3/29.0 cm/sec. Dist ICA 87.5/19.9 cm/sec. Dist ICA 102.1/34.5 cm/sec. Rt. ICA/CCA = 175.1/110.7=1.6. Lt. ICA/CCA = 105.8/113.1=0.94. Prox ECA 145.4/6.6 cm/sec. Prox ECA 151.4/10.8 cm/sec. Rt. Vert. 35.8/9.4 cm/sec. Lt. Vert. 57.0/16.4 cm/sec. Right Extracranial There is homogeneous, smooth atherosclerotic plaque noted in the right common carotid artery. There is heterogeneous, irregular atherosclerotic plaque noted in the right internal carotid artery. There is homogeneous, smooth atherosclerotic plaque noted in the right external carotid artery. Antegrade flow is noted in the right vertebral artery. There is heterogeneous, irregular atherosclerotic plaque noted in the right bulb. Left Extracranial There is homogeneous, smooth atherosclerotic plaque noted in the left common carotid artery. There is intimal thickening but no significant atherosclerotic plaque noted in the left internal carotid artery. There is homogeneous, smooth atherosclerotic plaque noted in the left external carotid artery. Antegrade flow is noted in the left vertebral artery. There is heterogeneous, smooth atherosclerotic plaque noted in the left bulb. Interpretation Summary Moderate (50-69%) stenosis right extracranial internal carotid. Mild (<50%) stenosis left extracranial internal carotid. Flow within the vertebral arteries is antegrade bilaterally. Ordering Physician: Gloria Fontana Referring Physician: Gloria Fontana Performed By: Sylwia Warren, DEMOND, RVT
== END ==
PROVIDERS: PCP Internal Medicine; Referring Provider Internal Medicine; Visit Provider Internal Medicine
DX: I65.23 Occlusion and stenosis of bilateral carotid arteries (principal)
CPT/HCPCS: 93880

== ENCOUNTER → 2019-10-09 08:50 | Outpatient (CLI) | payer OTHER, SELFPAY ==
[2019-09-18 14:40] VITALS: BMI 33.3
--- NOTE | 2019-10-09 08:55 | RAD_ITS ---
HISTORY: LUNG FIELD ABNORMAL FINDING ON EXAMINATION ADDITIONAL HISTORY: None provided. COMPARISON: 11/22/2018 TECHNIQUE: Frontal and lateral chest radiographs. Number of images including paperwork: 2 FINDINGS: LUNGS AND PLEURA: No consolidation, mass or pleural effusion. CARDIAC SILHOUETTE: Unremarkable. MEDIASTINUM AND MAGALIS: Unchanged aortic calcification and tortuosity. UPPER ABDOMEN: Unremarkable. SKELETON AND SOFT TISSUES: No acute findings. Degenerative changes. OTHER DEVICES AND HARDWARE: Sternal wires. RAD/Chest PA and Lateral IMPRESSION: No acute cardiopulmonary abnormality. at 0242 Reported and signed by: Desirae Bailey MD Electronically Signed: Desirae Bailey MD at 2:42 EDT Tel , Service support ,
== END ==
PROVIDERS: PCP Internal Medicine; Referring Provider Internal Medicine; Visit Provider Internal Medicine
DX: R91.8 Other nonspecific abnormal finding of lung field (principal)
CPT/HCPCS: 71046

== ENCOUNTER → 2019-12-01 10:05 | Outpatient (CLI) | payer OTHER, SELFPAY ==
[2019-09-18 14:40] VITALS: BMI 33.3
--- NOTE | 2019-12-01 10:43 | RAD_ITS ---
STUDY: X-RAY - RIGHT KNEE REASON FOR EXAM: Male, 69 years old. PATIENT FELL YESTERDAY ONTO HIS RIGHT KNEE ONTO CONCRETE. PAIN ENTIRE RIGHT KNEE MOSTLY ANTERIORLY INTO THE RIGHT KNEE JOINT PER PATIENT. TECHNIQUE: 4 view(s) of the knee. COMPARISON: None. FINDINGS: Normal visualized distal femur. Normal visualized proximal tibia and fibula. Normal proximal tibiofibular articulation. There is mild degenerative arthrosis of the medial femorotibial compartment. Normal lateral femorotibial compartment. There is mild degenerative arthrosis of the patellofemoral articulation. There is a large volume joint effusion. On the right side of the patella there is a focal lucency seen both on the AP and the sunrise views. There is soft tissue edema along the medial side of the knee allowing for technique. There is mild widening of the patella femoral compartment. RAD/Knee 4 or More Views IMPRESSION: Findings suspicious for a nondisplaced fracture of the lateral patella. Soft tissue edema large joint effusion. Electronically Signed: Linh Khan MD at 11:53 EDT Tel , Service support ,
== END ==
PROVIDERS: PCP Internal Medicine; Referring Provider Internal Medicine; Visit Provider Internal Medicine
DX: M25.569 Pain in unspecified knee (principal)
CPT/HCPCS: 73564

== ENCOUNTER → 2020-08-13 10:49 | Outpatient (CLI) | payer OTHER, SELFPAY ==
[2019-09-18 14:40] VITALS: BMI 33.3
--- NOTE | 2020-08-13 10:55 | CDU_ITS ---
Reason For Study: Carotid Stenosis Rt. Velocities/BP Lt. Velocities/BP Prox CCA 118/19 cm/sec. Prox CCA 109/25 cm/sec. Mid CCA 110/24 cm/sec. Mid CCA 98/18 cm/sec. Dist CCA 99/20 cm/sec. Dist CCA 92/20 cm/sec. Prox ICA 194/39 cm/sec. Prox ICA 94/23 cm/sec. Mid ICA 181/34 cm/sec. Mid ICA 109/34 cm/sec. Dist ICA 75/24 cm/sec. Dist ICA 94/35 cm/sec. Rt. ICA/CCA = 1.76. Lt. ICA/CCA = 1.1. Prox ECA 104/8 cm/sec. Prox ECA 133/10 cm/sec. Rt. Vert. 34/7 cm/sec. Lt. Vert. 37/13 cm/sec. Right Extracranial There is heterogeneous, smooth atherosclerotic plaque noted in the right common carotid artery. There is heterogeneous, irregular atherosclerotic plaque noted in the right internal carotid artery. There is intimal thickening but no significant atherosclerotic plaque noted in the right external carotid artery. Antegrade flow is noted in the right vertebral artery. Left Extracranial There is heterogeneous, smooth atherosclerotic plaque noted in the left common carotid artery. There is heterogeneous, irregular atherosclerotic plaque noted in the left internal carotid artery. There is intimal thickening but no significant atherosclerotic plaque noted in the left external carotid artery. Antegrade flow is noted in the left vertebral artery. Procedure Carotid Duplex [id number]. Exam performed in department. VL/Carotid Duplex Ultrasound Interpretation Summary Moderate (50-69%) stenosis right extracranial internal carotid. Mild (<50%) luis miguel nosis left extracranial internal carotid. Flow within the vertebral arteries is antegrade bilaterally. Ordering Physician: Gloria Fontana Referring Physician: Gloria Fontana Performed By: Lisbeth Mendez, RDCS, RVT
== END ==
PROVIDERS: PCP Internal Medicine; Referring Provider Internal Medicine; Visit Provider Internal Medicine
DX: I65.23 Occlusion and stenosis of bilateral carotid arteries (principal)
CPT/HCPCS: 93880

== ENCOUNTER → 2020-09-26 07:52 | Outpatient (CLI) | payer OTHER, SELFPAY ==
[2020-09-18 12:36] VITALS: BMI 36.8
--- NOTE | 2020-09-26 07:56 | ECHOCS_ITS ---
Reason For Study: CAD/ASHD Procedure This was a 2D Doppler, Color Flow transthoracic echocardiogram. Technically difficult study due to patient body habitus. Very difficult to obtain any parasternal images, attempted from multiple positions. Contrast injection was used to enhance mukul quality. Exam performed in department. Left Ventricle Normal LV size. Left ventricular systolic function is normal. The estimated ejection fraction is 65 %. Stage 2 diastolic dysfunction. No regional wall motion abnormalities noted. Right Ventricle Normal RV size. Normal systolic function. Atria Normal left atrium. Normal right atrium. Mitral Valve There is mild mitral annular calcification. Tricuspid Valve Normal tricuspid valve. Aortic Valve Normal aortic valve. Pulmonic Valve The pulmonic valve is not well visualized. Great Vessels Normal aortic root. The pulmonary artery is normal size. Normal inferior vena cava. Pericardium/Pleural No pericardial effusion. Medication 22 gauge I.V. with prn adaptor inserted into right arm. Diluted definity 5ml given slow IV push to enhance endocardial definition. MMode/2D Measurements & Calculations LA dimension: 3.4 cm LAV(MOD-sp4): 60.2 ml LA A4 area: 19.8 cm2 RA A4 area: 17.4 cm2 Time Measurements MV dec time: 0.21 sec Doppler Measurements & Calculations MV E max akil: 121.6 cm/sec Lat Peak E' Akil: 6.6 cm/sec Med Peak E' Akil: 6.1 cm/sec MV A max akil: 92.8 cm/sec E/E' lat: 18.5 E/E' med: 20.1 MV E/A: 1.3 MV V2 max: 128.1 cm/sec MV P1/2t max akil: 129.0 cm/sec Ao V2 max: 188.8 cm/sec MV max P.6 mmHg MV P1/2t: 95.4 msec Ao max P.3 mmHg MV V2 mean: 67.2 cm/sec MV mean P.1 mmHg MV dec slope: 396.2 cm/sec2 MV V2 VTI: 48.8 cm MVA(P1/2t): 2.3 cm2 LV V1 max: 126.2 cm/sec PA V2 max: 104.0 cm/sec TR max akil: 231.5 cm/sec LV V1 max P.4 mmHg TR max P.4 mmHg ECHO/Echo Complete W/ Contrast Interpretation Summary Normal LV size. Left ventricular systolic function is normal. The estimated ejection fraction is 65 %. Stage 2 diastolic dysfunction. Contrast injection was performed. Ordering Physician: Jerald Sanchez Referring Physician: Gloria Fontana D.O. Performed By: Yasmani Nuno RCS
== END ==
PROVIDERS: PCP Internal Medicine; Referring Provider Internal Medicine Cardiovascular Disease; Visit Provider Internal Medicine Cardiovascular Disease
DX: I25.10 Atherosclerotic heart disease of native coronary artery without angina pectoris (principal); Z95.1 Presence of aortocoronary bypass graft; E78.2 Mixed hyperlipidemia
CPT/HCPCS: 93306; Q9957; A4216; C8929; J3490

== ENCOUNTER → 2020-11-19 10:24 | Outpatient (CLI) | payer OTHER, SELFPAY ==
[2020-09-18 12:36] VITALS: BMI 36.8
== END ==
PROVIDERS: PCP Internal Medicine; Referring Provider Internal Medicine; Visit Provider Internal Medicine
DX: G47.33 Obstructive sleep apnea (adult) (pediatric) (principal)
CPT/HCPCS: 94762

== ENCOUNTER → 2021-10-12 | Outpatient (CLI) | payer OTHER, SELFPAY ==
--- NOTE | 2021-10-12 09:57 | CDU_ITS ---
Reason For Study: Stenosis Rt. Velocities/BP Lt. Velocities/BP Prox CCA 132.4/13.8 cm/sec. Prox CCA 106.5/18.8 cm/sec. Mid CCA 114.8/20.4 cm/sec. Mid CCA 122.9/22.5 cm/sec. Dist CCA 97.2/16 cm/sec. Dist CCA 88.2/17 cm/sec. Prox ICA 180.7/38 cm/sec. Prox ICA 99.2/26.1 cm/sec. Mid ICA 178.5/40.2 cm/sec. Mid ICA 122.9/33.4 cm/sec. Dist ICA 125.8/24.8 cm/sec. Dist ICA 79.1/24.3 cm/sec. Rt. ICA/CCA = 1.57. Lt. ICA/CCA = 1.15. Prox ECA 134.6/16 cm/sec. Prox ECA 130.2/11.5 cm/sec. Rt. Vert. 31.1/10.2 cm/sec. Lt. Vert. 49.5/15.1 cm/sec. Right Extracranial There is homogeneous, smooth atherosclerotic plaque noted in the right common carotid artery. There is heterogeneous, irregular atherosclerotic plaque noted in the right internal carotid artery. There is heterogeneous, irregular atherosclerotic plaque noted in the right external carotid artery. Antegrade flow is noted in the right vertebral artery. Left Extracranial There is homogeneous, smooth atherosclerotic plaque noted in the left common carotid artery. There is heterogeneous, irregular atherosclerotic plaque noted in the left internal carotid artery. There is intimal thickening but no significant atherosclerotic plaque noted in the left external carotid artery. Antegrade flow is noted in the left vertebral artery. Procedure Carotid Duplex 45569. This is a Carotid Duplex examination using B-mode, color flow and specral Doppler. Exam performed in department. VL/Carotid Duplex Ultrasound Interpretation Summary Moderate (50-69%) stenosis right extracranial internal carotid. Mild (<50%) luis miguel nosis left extracranial internal carotid. Flow within the vertebral arteries is antegrade bilaterally. Ordering Physician: Gloria Fontana Referring Physician: Gloria Fontana D.O. Performed By: Natasha Acevedo RVT
== END | disposition home or self-care (01) ==
PROVIDERS: PCP Internal Medicine; Referring Provider Internal Medicine; Visit Provider Internal Medicine
DX: I65.23 Occlusion and stenosis of bilateral carotid arteries (principal)
CPT/HCPCS: 93880

== ENCOUNTER → 2021-10-14 | Outpatient (CLI) | payer OTHER, SELFPAY ==
--- NOTE | 2021-10-14 14:41 | STRESSREP ---
Stress Test Report Exercise myocardial perfusion stress test. 71-year-old man with a history of coronary artery disease. Stress protocol: Resting EKG demonstrates normal sinus rhythm with a rate of 76 bpm normal intervals are noted resting blood pressure is 158/82 mmHg. The patient exercised according to regular Walter protocol for total duration of 6 minutes. The maximum heart rate attained was 139 bpm which was 92% of max impacted heart rate the maximum workload was 7.5 metabolic equivalents. At rest there were no ST or T wave changes noted to suggest ischemia and at peak exercise upsloping ST changes were noted in leads V5 and V6 less than 1 mm in approximately [address] depression noted in leads II, III and aVF. The above did not meet the criteria for ischemia occasional premature ventricular complexes were noted during recovery. The test was terminated due to the target heart rate being achieved. The peak blood pressure was 210/84 mmHg with a rate-pressure product of 23,100. Myocardial perfusion protocol. 10.7 mCi of technetium 99m sestamibi was injected at rest. The patient exercised according to regular Walter protocol for total duration of 6 minutes and at peak exercise 33.1 mCi of technetium 99m sestamibi was injected stress images were obtained stress and rest images were reconstructed and compared in the short axis vertical long and horizontal long axis. Gated images were also obtained. Perfusion SPECT analysis: Review of the stress images demonstrate normal uptake of tracer noted in all areas of the myocardium. The resting images similarly demonstrate normal uptake of tracer noted in all areas of the myocardium. No areas of reversibility are noted to suggest ischemia and no previous infarct is noted. Gated SPECT analysis: The gated ejection fraction is 61%. Conclusion: Normal exercise myocardial perfusion stress test with no evidence of ischemia at a moderate workload. Preserved ejection fraction.
== END | disposition home or self-care (01) ==
LOC: CVS 06:08
PROVIDERS: PCP Internal Medicine; Referring Provider Internal Medicine Cardiovascular Disease; Visit Provider Internal Medicine Cardiovascular Disease
DX: I25.10 Atherosclerotic heart disease of native coronary artery without angina pectoris (principal); Z95.1 Presence of aortocoronary bypass graft
CPT/HCPCS: 78452; 93017; A9500; A4216

== ENCOUNTER → 2022-09-22 | Outpatient (CLI) | payer OTHER, SELFPAY ==
--- NOTE | 2022-09-22 07:58 | CDU_ITS ---
Reason For Study: Bilateral carotid artery stenosis Rt. Velocities/BP Lt. Velocities/BP Prox CCA 128.4/18.8 cm/sec. Prox CCA 121.1/26.1 cm/sec. Mid CCA 126.6/24.3 cm/sec. Mid CCA 95.5/17 cm/sec. Dist CCA 110.1/18.8 cm/sec. Dist CCA 80.9/17 cm/sec. Prox ICA 179.5/38.9 cm/sec. Prox ICA 106.5/18.8 cm/sec. Mid ICA 174.1/42.4 cm/sec. Mid ICA 121.1/35.3 cm/sec. Dist ICA 132.4/27 cm/sec. Dist ICA 104.7/27.9 cm/sec. Rt. ICA/CCA = 1.42. Lt. ICA/CCA = 1.27. Prox ECA 106.5/11.5 cm/sec. Prox ECA 119.3/11.5 cm/sec. Rt. Vert. 28/5.2 cm/sec. Lt. Vert. 51.3/15.4 cm/sec. Right Extracranial There is homogeneous, smooth atherosclerotic plaque noted in the right common carotid artery. There is heterogeneous, irregular atherosclerotic plaque noted in the right internal carotid artery. There is heterogeneous, irregular atherosclerotic plaque noted in the right external carotid artery. Antegrade flow is noted in the right vertebral artery. Left Extracranial There is homogeneous, smooth atherosclerotic plaque noted in the left common carotid artery. There is heterogeneous, irregular atherosclerotic plaque noted in the left internal carotid artery. There is intimal thickening but no significant atherosclerotic plaque noted in the left external carotid artery. Antegrade flow is noted in the left vertebral artery. Procedure Carotid Duplex 10419. This is a Carotid Duplex examination using B-mode, color flow and specral Doppler. Exam performed in department. VL/Carotid Duplex Ultrasound Interpretation Summary Moderate (50-69%) stenosis right extracranial internal carotid. Mild (<50%) stenosis left extracranial internal carotid. Patent and antegrade vertebrals bilaterally. Ordering Physician: Gloria Fontana Referring Physician: Gloria Fontana Performed By: Natasha Acevedo RVT
== END | disposition home or self-care (01) ==
LOC: CVS 07:57
PROVIDERS: PCP Internal Medicine; Referring Provider Internal Medicine; Visit Provider Internal Medicine
DX: I65.23 Occlusion and stenosis of bilateral carotid arteries (principal)
CPT/HCPCS: 93880

== ENCOUNTER → 2023-03-30 | Outpatient (CLI) | payer OTHER, SELFPAY ==
--- NOTE | 2023-03-30 14:53 | CT_ITS ---
STUDY: CTA NECK WITH CONTRAST REASON FOR EXAM: Male, 73 years old. DIZZINESS. History of right carotid stenosis. RADIATION DOSAGE (If Supplied By Facility): CTDIvol = ( 20.56 ) mGy, DLP = ( 672.25 ) mGycm TECHNIQUE: CT angiography with multi-detector data acquisition was performed from the aortic arch to the skull base following intravenous administration of IV 100mL Isovue-370. MIP images were reconstructed from the axial data set. Post-processing of the angiographic images was performed, with multiplanar reformation and 3D reconstruction. Individualized dose optimization techniques were used for this CT. COMPARISON: None. FINDINGS: AORTIC ARCH: There is atherosclerotic calcific plaque formation of the aortic arch and great vessels arising from the aortic arch, without a hemodynamically significant stenosis. There is a normal origin of the brachiocephalic, left common carotid, and left subclavian arteries. Atherosclerotic plaque formation at the origin of the left common carotid artery as well as the right brachiocephalic and left subclavian artery. RIGHT CAROTID ARTERIES: Normal right common carotid artery (CCA). Normal right common carotid bulb. There is severe atherosclerotic plaque formation of the origin of the right internal carotid artery with a near complete occlusion. Normal visualized cervical portion of the right internal carotid artery. Normal origin of the right external carotid artery (ECA). LEFT CAROTID ARTERIES: Normal left common carotid artery (CCA). Normal left common carotid bulb. There is extensive atherosclerotic plaque formation of the origin of the left internal carotid artery with an estimated stenosis of greater than 70%. Normal visualized cervical portion of the left internal carotid artery. Normal origin of the left external carotid artery (ECA). VERTEBRAL ARTERIES: There is enhancement within the bilateral vertebral arteries with a small right vertebral artery, and a dominant left vertebral artery. CT/CTA Neck W/WO Contrast IMPRESSION: Calcific plaques at the origin of both right and left internal carotid artery causing greater than 70% narrowing at the origin of the left internal carotid artery and greater than 90% at the origin of the right internal carotid artery. Electronically Signed: Faizan Menendez MD at 15:43 EST ,
[2023-03-30 15:12] LABS: CREATININE FINGERSTICK < 1.0 mg/dL (0.70-1.30); EGFR FINGERSTICK > 60.0000 mL/min (>60)
== END | disposition home or self-care (01) ==
LOC: CT 14:12
PROVIDERS: PCP Internal Medicine; Referring Provider Internal Medicine; Visit Provider Internal Medicine
DX: R42 Dizziness and giddiness (principal)
CPT/HCPCS: 70498; Q9967

== ENCOUNTER 2023-06-13 05:31 | Inpatient (IN) | payer MEDICARE, OTHER, SELFPAY ==
[2023-06-07 10:06] LABS: Hematocrit 48.2 % (40-54); Hemoglobin 16.6 g/dL (13.0-16.5); Mean Corp Hgb Conc 34.4 g/dL (32-36); Mean Corpuscular Volume 89.9 fL (80-94); Mean Platelet Vol. 10.1 fl (6.2-12.0); Platelet Count 153 K/mm3 (150-450); RBC Distribution Width CV 11.8 % (11.6-14.6); RBC Distribution Width SD 38.9 fl (35.1-43.9); Red Blood Count 5.36 M/mm3 (4.6-6.2); White Blood Count 6.2 K/mm3 (4.4-11.0)
[2023-06-07 11:13] LABS: Anion Gap 5 (5-15); BUN 14 mg/dL (7-18); BUN/Creat Ratio 15.3 RATIO (10-20); Calcium,Total 9.5 mg/dL (8.5-10.1); Chloride 106 mmol/L (98-107); Creatinine, Serum 0.92 mg/dL (0.70-1.30); EST Glomerular Filtration Rate 86 mL/min (>60); Est Glom Filt Rate - Afr Amer 104 mL/min (>60); Glucose 164 mg/dL (74-106); Potassium 3.8 mmol/L (3.5-5.1); Sodium Level 135 mmol/L (136-145)
[2023-06-07 12:10] LABS: Hemoglobin A1c 5.8 % (3.8-5.6)
[2023-06-13] VITALS (24 sets, daily range): BP systolic 92–161; BP diastolic 49–78; PULSE 49–70; RESP 10–18; TEMP 36.3–36.8; O2SAT 91–98; BMI 36.3
[2023-06-13] MEDS: Lactated Ringers 1,000 ML 15 ML IV ×2 (06:30→10:01)
[2023-06-13 06:45] LABS: Bedside Glucose 142 mg/dL (74-106)
[2023-06-13] MEDS: 0.9% Normal Saline (1000mL) 1,000 ML IV (06:57)
--- NOTE | 2023-06-13 07:25 | PCM.HP.BLA ---
History and Physical Allergies No Known Allergies Allergy (Verified 05/25/23 15:19) [facility] Medical History Actinic keratosis Arrhythmia Atherosclerotic heart disease of [place] coronary artery without angina pectoris Bruit of right carotid artery Erectile dysfunction Mixed hyperlipidemia Obesity SUSHANT (obstructive sleep apnea) Polycythemia Postoperative atrial fibrillation (01/21/19) Stenosis of right carotid artery Thrombocytopenia Type 2 diabetes mellitus Surgical History H/O coronary artery bypass surgery (01/18/19) History of left heart catheterization (11/27/18) History of oral surgery History of vasectomy Family History Father Diabetes Heart disease Hypertension High cholesterol COPD (chronic obstructive pulmonary disease)Sister Kidney disease High cholesterolBrother High cholesterol Hypertension SUSHANT (obstructive sleep apnea)Mother Diabetes Heart disease CVA (cerebral vascular accident) TIA (transient ischemic attack) Social History household members: spouse and other details: adult son current occupational status: retired history of recent travel: Yes ([employer], [employer], [facility]) Smoking Status: Former smoker how long ago did patient quit smokin alcohol intake: current alcohol intake frequency: a few times a month substance use type: does not use caffeine: Yes (2 drinks/day) what type of physical activity do you participate in: none HPI HPI HPI: ANGEOL DÍAZ, is a 73 M who presents to the office today for further discussion of right carotid stenosis, asymptomatic. Prior duplex indicated more moderate level of disease though CTA revealed >80% right ICA stenosis with calcification. He has considered options and is here to discuss. ROS General General: No weight change, appetite, fatigue, colon cancer, breast cancer or weakness HEENT HEENT: No difficulty swallowing, eye injury, eye surgery, swollen glands or hoarseness Endo Endocrine: Yes diabetes mellitus; No thyroid disease, thyroid cancer, Hair loss, heat intolerance or cold intolerance Skin Skin: No rash or changing moles Musc Musculoskeletal: No back problems, arthritis, rheumatoid arthritis, gout or joint pain Cardio Cardiovascular: Yes heart disease; No murmur, pacemaker, atrial fibrillation, high blood pressure, heart attack, heart stent, palpitations, shortness of breat with exertion or chest pain Psych Psychiatric: No depression, anxiety or hearing voices Resp Respiratory: No shortness of breath, Yes sleep apnea, No cough, No COPD, No asthma, No emphysema and No wheezing Gastro Gastrointestinal: No abdominal pain, No nausea or vomiting, No diarrhea, No constipation, No blood in stool, No acid reflux, No hemorrhoids, No ulcers, No gallbladder problem and No black,tarry stools [place] Hematologic: No blood thinners, No blood disorders, No bleeding, No anemia and No blood clots Neuro Neurologic: No system reviewed and no additional complaints, except as documented, No as per HPI, No abnormal gait, No abnormal hearing, No abnormal movements, No abnormal speech, No behavioral changes, No burning sensations, No confusion, No convulsions, No disequilibrium, No dizziness, No localized weakness, No frequent falls, No headache(s), No lack of coordination, No loss of vision, No memory loss, No numbness, No other visual disturbances, No radicular pain, No restless legs, No sensory deficit, No syncope, No tingling, No tremor(s), No weakness and No other Exam Const General: cooperative, healthy appearing, comfortable, no acute distress and well developed Nutritional Appearance: well nourished Orientation: alert, awake and oriented x3 HENPR Head: normocephalic and atraumatic Ears: hearing grossly normal bilaterally Nose: external nose normal Eyes General: appearance normal, both eyes and all related structures EOM: EOM intact bilaterally Neck Neck: normal visual inspection, full ROM, no lymphadenopathy and trachea midline Thyroid: thyroid normal Lymphatic: no lymphadenopathy noted Resp Effort & Inspection: normal respiratory effort, able to speak in complete sentences, symmetric chest movement, no audible wheezes, not labored, no stridor and no use of accessory muscles Cardio Rate: regular rate Rhythm: regular rhythm Skin General: no rashes or lesions noted and no erythema Wounds: no wounds Neuro Cranial Nerves: CN's II-XI intact bilaterally and EOM intact bilaterally Speech: speech normal Gait: normal gait Motor: strength 5/5 throughout Sensory Exam: no sensory deficits noted Psych Appearance: grossly normal and well kempt Mental Status: mental status grossly normal Mood: congruent mood Speech and Movement: speech and movement normal Thought Content: normal Judgment: judgment good Coding Level of Care Code Off vis,est,level 3 Diagnoses Stenosis of right carotid artery I65.21 Assessment and Plan Assessment and Plan (1) Stenosis of right carotid artery: Status: Chronic Comment: CTA- images reviewed, 82% right carotid stenosis by ECST, long plaque with calcification (67% by NASCET) Plan: -by CT reaches threshold for surgical intervention, though discussed also potential for optimal medical tx and surveillance -after discussing risks and benefits he elects to proceed with endarterectomy
[2023-06-13] MEDS: Cefazolin 2 GM in 0.9% Normal Saline (100mL Bag) 100 ML IV (07:28)
--- NOTE | 2023-06-13 07:30 | PLAQ_PTH ---
PATHOLOGY RESULTS PATIENT: ANGELO DÍAZ LOC: ICU U#:[id number] AGE/SX: 73/M ROOM: ICU01 RE06/13/[address]: Dr. Reynaldo Mcallister MD : 1950 BED: 1 DIS: 06/14/2023 SPEC #: [id number] RECD: 06/13/23 11:30 STATUS: BOOKER REVanita #: [id number] [place]: 06/13/23 07:[address]: Reynaldo Mcallister DEPT: SURGICAL PATHOLOGY RECD BY: Osiris Garrison ENTERED: 06/13/23 11:30 SP TYPE: PLAQUE OTHR DR: Dr. Gloria Fontana DO Tissues: PLAQUE Procedures: Decalcification bone/plaque Surgery Specimen Level III HEADER OPERATION: Carotid endarterectomy PRE-OP DIAGNOSIS: Stenosis of right carotid artery TISSUE SUBMITTED: Right carotid plaque MICROSCOPIC DIAGNOSIS Right carotid plaque, endarterectomy: Atherosclerotic tissue with moderate to marked calcifications (plaque). DELMER:laurie 06/16/2023 GROSS DESCRIPTION Received in fixative is one container labeled with the patient's name and designated right carotid plaque. The specimen consists of multiple irregular fragments of reyes-yellow, indurated and calcific tissue that in aggregate measure 2.5 x 1.0 x 0.6 cm. The specimen is sectioned and totally submitted in one cassette after decalcification. / AM:laurie 06/13/2023 TC:5 CPT:
[2023-06-13] MEDS: Heparin Injection (Vial) 5,000 UNIT/ML VIAL 5000 UNIT (08:04)
--- NOTE | 2023-06-13 09:58 | PCM.OPRPT ---
Report of Operation Date of Procedure: 06/13/23 Pre-Operative Diagnosis: right carotid stenosis Post-Operative Diagnosis: same Surgery/Procedure Performed:: right carotid endarterectomy Surgeon: Reynaldo Mcallister Type of Anesthesia: General Specimen's removed: plaque Drains: 19 Fr SHIRAZ Estimated Blood Loss (mL): 25 Description of Procedure: HPI: Patient is a 73-year-old male with asymptomatic right carotid artery stenosis which has been followed with serial duplex. Recent imaging suggested worsening stenosis and a CT angio revealed severe stenosis meeting threshold for intervention. He presents now for elective right carotid endarterectomy. Description of procedure: Upon obtaining informed consent and verification correct patient procedure site patient was taken to the operating where he was placed under general anesthesia. He was then positioned prepped and draped in usual sterile fashion and timeout was performed. Oblique incision was then made along the anterior border of the sternocleidomastoid and Bovie electrocautery was dissect down through the subcutaneous tissue to the level of platysma. The platysma was then divided and self-retaining retractors were put in position after which further dissection carried down to the sternocleidomastoid. There is then freed along its anterior border along the posterior lateral retraction exposing the carotid sheath. Sharp dissection used dissect free the anterior surface of the jugular vein after which the facial vein was identified, ligated with silk ties, and divided. The jugular vein was then retracted laterally exposing the carotid vessels and sharp dissection was used dissect free the common carotid artery proximally with care taken to identify and protect the vagus nerve. A writing was used to place a vessel loop and return attention distally to the internal carotid artery beyond the area of palpable and visible plaque. The vessel was then dissected free circumferentially with care taken to identify and protect the hypoglossal nerve and a writing was placed vessel loop around the distal internal carotid. Finally sharp dissection was dissect free the external carotid artery and a right angle used to place a vessel loop. The patient was in heparinized allowed circuit for 3 minutes with subsequent heparin boluses based on ACT results. Vessels were then occluded first the internal followed by the common external. Longitudinal arteriotomy was created 11 blade extended Abbott scissors onto the internal carotid artery. A 10 [place] shunt was then placed first distally in the internal carotid artery allowed to backbleed before placing proximally into the common carotid artery. The shunt was interrogated Doppler found to be patent with low resistance signal. We then performed her endarterectomy with a freer elevator with satisfactory endpoint distally on the internal carotid artery and eversion endarterectomy of the external carotid artery. The lumen was then flushed heparinized saline clear debris and a bovine pericardial patch brought in the field. This was secured in position with 6-0 Prolene in a running fashion. Prior to completing suture line the shunt was withdrawn and the vessels backbled. After completing the suture line the internal carotid artery was allowed to backbleed into the bifurcation reoccluded as origin. Clamps were then removed from the external and common carotid artery allowing 10 heartbeats of antegrade flow to flush prior to reestablishing antegrade flow into the internal carotid artery. After releasing the clamps satisfactory stasis was noted and the vessels were interrogated Doppler. The internal carotid artery was patent with low resistance signal in the external carotid artery is patent with appropriate signal. Heparin reversed with protamine and the incision inspected for hemostasis. A 19 [place] SHIRAZ was then placed via separate stab incision and the incision closed with 2-0 Vicryl, 3-0 Vicryl, 4 Monocryl and Dermabond for the skin. At the conclusion the case he was awake from anesthesia moving all extremities to command cranial nerves intact. He was then taken to the recovery room in the dissipate admission to the intensive care unit for hemodynamic and neurologic monitoring.
[2023-06-13] MEDS: Bupivacaine Mpf 0.5% 30 ML VIAL (10:05)
[2023-06-13 11:00] LABS: Bedside Glucose 160 mg/dL (74-106)
[2023-06-13] MEDS: Aspirin E.C. 81 MG Tablet PO (12:23)
[2023-06-13] MEDS: Ascorbic Acid 500 MG Tablet 1000 MG PO (12:23)
[2023-06-13] MEDS: Zinc Sulfate 50 mg zinc (220 mg) ORAL capsule PO (12:23)
[2023-06-13] MEDS: 0.45% Normal Saline 1,000 ML 100 ML IV ×2 (12:23→20:37)
[2023-06-13 14:55] LABS: ACT Activated Clotting Time 147 sec (74-137)
[2023-06-13 15:15] LABS: ACT Activated Clotting Time 347 sec (74-137)
[2023-06-13 15:16] LABS: ACT Activated Clotting Time 331 sec (74-137)
[2023-06-13] MEDS: Cefazolin 1 GM/50 ML BAG IV ×2 (15:42→22:48)
[2023-06-13 17:11] LABS: Bedside Glucose 173 mg/dL (74-106)
[2023-06-13] MEDS: metFORMIN HCl 500 MG Tablet PO (17:37)
[2023-06-13] MEDS: Omega-3 Acid Ethyl Esters 1 GM Capsule PO (20:28)
[2023-06-13] MEDS: Atorvastatin Calcium 20 MG Tablet PO (20:28)
[2023-06-13] MEDS: Cholecalciferol (VIT D3) 25 MCG TABLET (1,000 UNITS) 50 MCG PO (20:28)
[2023-06-13] MEDS: Acetaminophen 500 MG Tablet 1000 MG PO (20:28)
[2023-06-13] MEDS: Insulin Lispro 100 UNIT/ML INSULN.PEN SC (20:28)
[2023-06-13 20:42] LABS: Bedside Glucose 186 mg/dL (74-106)
[2023-06-14] VITALS (15 sets, daily range): BP systolic 98–143; BP diastolic 46–93; PULSE 45–64; RESP 15–18; TEMP 36.2–36.7; O2SAT 94–99; BMI 36.3; BMI 37.2
[2023-06-14] MEDS: Acetaminophen 500 MG Tablet 1000 MG PO (04:52)
[2023-06-14 05:01] LABS: Absolute Neutrophil Count 11.2 X10^3/uL (2.0-7.7); Basophil# 0.03 X10^3/uL; Basophil% 0.2 % (0-1); Eosinophil# 0.02 X10^3/uL; Eosinophils% 0.1 % (0-5); Hematocrit 43.9 % (40-54); Hemoglobin 15.2 g/dL (13.0-16.5); Lymphocyte % 13.6 % (19-41); Mean Corp Hgb Conc 34.6 g/dL (32-36); Mean Corpuscular Hgb 30.6 pg (27.0-32.0); Mean Corpuscular Volume 88.5 fL (80-94); Mean Platelet Vol. 9.6 fl (6.2-12.0); Monocyte# 0.82 X10^3/uL; Monocyte% 5.9 % (0-10); NRBC Flagged by Analyzer 0 % (0-5); Neutrophil # 11.16 X10^3/uL (2.7-7.7); Neutrophil % 79.7 % (47-70); Platelet Count 148 K/mm3 (150-450); RBC Distribution Width CV 11.8 % (11.6-14.6); RBC Distribution Width SD 37.4 fl (35.1-43.9); Red Blood Count 4.96 M/mm3 (4.6-6.2)
[2023-06-14] MEDS: 0.45% Normal Saline 1,000 ML 100 ML IV (06:37)
[2023-06-14] MEDS: Omega-3 Acid Ethyl Esters 1 GM Capsule PO (07:32)
[2023-06-14] MEDS: Zinc Sulfate 50 mg zinc (220 mg) ORAL capsule PO (07:32)
[2023-06-14] MEDS: Enoxaparin 40 MG/0.4 ML Syringe SC (07:33)
[2023-06-14] MEDS: Aspirin E.C. 81 MG Tablet PO (07:33)
[2023-06-14] MEDS: Ascorbic Acid 500 MG Tablet 1000 MG PO (07:33)
[2023-06-14] MEDS: metFORMIN HCl 500 MG Tablet PO (07:34)
[2023-06-14] MEDS: Cholecalciferol (VIT D3) 25 MCG TABLET (1,000 UNITS) 50 MCG PO (07:35)
[2023-06-14 08:01] LABS: Bedside Glucose 110 mg/dL (74-106)
--- NOTE | 2023-06-14 08:22 | PCM.PN.SRG ---
Subjective Subjective Patient is seen sitting comfortably in the chair this morning. He reports mild discomfort at the surgical site, well controlled with current medications. He reports no trouble moving from bed to chair this morning, tolerated normal dinner well last night. He is having some burning with urination, but has normal output. No right-sided headache, hoarseness, tongue deviation, facial droop, unilateral motor weakness/sensory deficit. He was hemodynamically stable overnight. He has had low output from the SHIRAZ drain overnight. Objective Data Objective Data Vital Signs: Vital Signs Temp Pulse Resp BP Pulse Ox O2 Del Method O2 Flow Rate 97.8 F 49 L 16 123/52 H 99 Room Air 2 06/14/23 04:00 06/14/23 07:00 06/14/23 07:00 06/14/23 07:00 06/14/23 07:09 06/14/23 07:09 06/13/23 11:15 Oxygen Flow Rate (L/min) 2 Oxygen Delivery Method Room Air Weight: 259 lb 14.8 oz Body Mass Index (BMI) 37.2 Intake & Output: Intake and Output for Last 24 Hours 06/12/23 06/13/23 06/14/23 23:59 23:59 23:59 Intake Total 2066.26 / 2066.26 1000 / 1000 Output Total 340 / 340 1060 / 1060 Balance 1726.26 / 1726.26 -60 / -60 Lab / Micro Data 06/14/23 04:50 06/07/23 09:14 Labs: Laboratory Results - last 24 hr 06/13/23 07:53: Activated Clotting Time 147 H 06/13/23 08:36: Activated Clotting Time 347 H 06/13/23 09:15: Activated Clotting Time 331 H 06/13/23 10:42: POC Glucose 160 H 06/13/23 16:52: POC Glucose 173 H 06/13/23 20:21: POC Glucose 186 H 06/14/23 04:50: WBC 14.0 H, RBC 4.96, Hgb 15.2, Hct 43.9, MCV 88.5, MCH 30.6, MCHC 34.6, RDW Std Deviation 37.4, RDW Coeff of Laurita 11.8, Plt Count 148 L, MPV 9.6, Immature Gran % (Auto) 0.500, Neut % (Auto) 79.7 H, Lymph % (Auto) 13.6 L, [place] % (Auto) 5.9, Eos % (Auto) 0.1, Baso % (Auto) 0.2, Absolute Neuts (auto) 11.2 H, Absolute Lymphs (auto) 1.90, Nucleated RBC % 0 06/14/23 07:31: POC Glucose 110 H Physical Exam Const oriented x3 and no apparent distress HEENT normocephalic, head/scalp atraumatic, hearing grossly normal bilaterally, external ears normal and external nose normal Eyes EOMs intact bilaterally General Eye: normal appearance of both eyes Neck Neck Narrative: R neck incision with surgical glue intact, mild swelling. No ecchymosis, drainage, erythema. Resp normal respiratory effort Cardio regular rate and regular rhythm Extremity no clubbing, cyanosis or edema Skin no rashes or lesions noted and no wounds Assessment & Plan Assessment/Plan (1) Stenosis of right carotid artery: PLAN: Plan He is POD#1 R CEA. The incision site is satisfactory in appearance. The SHIRAZ drain was removed without issue this morning. He has remained hemodynamically and neurologically stable. He is tolerating a normal diet. His pain is well controlled. Burning with urination is likely secondary to the morales catheter that was placed for surgery, should continue to improve with time. Will plan to have him ambulate with nursing/PT later this morning. If he does well with this, anticipate discharge this afternoon.
--- NOTE | 2023-06-14 10:17 | CASEMGMT ---
SATYA WIGGINS Assessment: Face to Face with pt for initial transition planning/care coordination assessment. RN CM introduced self and role at [facility], pt voices understanding and consents to assessment. Pt is A&O x4 and answers all questions appropriately at this time. Pt sitting up in chair getting ready to go for a walk with nurse and at bedside. Care providers, pharmacy, and demographics verified/updated. Admitting Dx: Carotid endarterectomy PCP:Addi Specialists:Angie Mcallister; Daniel cardio; Marina for scopes Preferred Pharmacy: [facility] Retail Insurance: MCR, [employer] Prescription Benefit: yes LNOK: Beverly Hazel, Living Arrangements: Pt lives with in a single story home with 3 steps to enter with a rail. Pt reports he is I in ADL's and denies concerns at home. Transportation: Pt drives self and denies concerns with transportation. DME:[employer] HHC/SNF: Has had HHC in the past, cannot recall name of agency. Denies SNF stays. Pt states no concerns with going home at time of dc. Pt states no further concerns/needs. CM to follow. Advised pt to ask CM if any further question/concerns/needs arise, voices understanding. Pt Goal: Home Plan: Home
[2023-06-14 12:06] LABS: Bedside Glucose 148 mg/dL (74-106)
[2023-06-14] MEDS: Lisinopril 5 MG Tablet PO (12:34)
--- NOTE | 2023-06-14 12:48 | DS.PCM_ITS ---
Providers Date of Admission: 06/13/23 Primary Care Physician: Dr. Gloria Fontana DO Reason For Visit: Carotid Endarterectomy Diagnosis Discharge Diagnosis (1) Stenosis of right carotid artery: Status: Chronic Code(s): I65.21 - Occlusion and stenosis of right carotid artery Plan He is POD#1 R CEA. The incision site is satisfactory in appearance. The SHIRAZ drain was removed without issue this morning. He has remained hemodynamically and neurologically stable. He is tolerating a normal diet. His pain is well controlled. Burning with urination is likely secondary to the morales catheter that was placed for surgery, should continue to improve with time. Will plan to have him ambulate with nursing/PT later this morning. If he does well with this, anticipate discharge this afternoon. Medications at Discharge Home Medications aspirin 81 mg tablet,delayed release 81 mg PO DAILY HEART 11/16/18 simvastatin 40 mg tablet 40 mg PO QHS CHOLESTEROL 11/16/18 lactobacillus combination no.9 4 billion cell capsule (Adult 50 Plus Probiotic) 4,000 mmu cells PO DAILY SUPPLEMENT 11/22/18 arginine HCl (L-arginine) 1,000 mg tablet 2,000 mg PO TID SUPPLEMENT 09/18/19 cholecalciferol (vitamin D3) 50 mcg (2,000 unit) capsule 2,000 unit PO BID SUPPLEMENT 09/18/19 omega-3 fatty acids-fish oil 360 mg-1,200 mg capsule (Fish Oil) 1 cap PO BID SUPPLEMENT 09/18/19 cetirizine 10 mg tablet (Zyrtec) 10 mg PO DAILY PRN allergy symptoms 09/18/20 zinc 50 mg tablet 50 mg PO DAILY SUPPLEMENT 09/18/20 lisinopril 5 mg tablet 5 mg PO 1200 BP 09/22/21 nitroglycerin 0.4 mg sublingual tablet 0.4 mg sublingual Q5-15M PRN chest pain 09/22/21 ascorbic acid (vitamin C) 1,000 mg tablet 1 g PO DAILY SUPPLEMENT 09/21/22 metformin 500 mg tablet 500 mg PO BID DIABETES 09/21/22 metoprolol tartrate 50 mg tablet 50 mg PO BID BP #180 tabs 09/21/22 coenzyme Q10 100 mg capsule (Co Q-10) 100 mg PO DAILY cholesterol 06/13/23 oxycodone 5 mg tablet 5 mg PO Q8H PRN PRN Pain Score 4-10 3 days #9 tabs 06/14/23 Hospital Course Operations - (R CEA) Summary of Care Provided Hospital Course: Mr. Morro Hazel is a 73-year-old male who underwent right carotid endarterectomy on 06/13/2023. He tolerated the procedure well. Postoperatively, he was routinely admitted to the ICU for close hemodynamic and neurologic monitoring. He has remained both hemodynamically and neurologically stable throughout his admission. He had minimal drainage from the SHIRAZ drain so this was removed on postop day 1 without issue. The incision site is satisfactory in appearance without any evidence of hematoma or infection. Following surgery, he has been tolerating a normal diet, his pain is well-controlled, he is voiding without difficulty, and he is ambulating without difficulty. He does acknowledge some burning with urination, this is most likely secondary to Morales catheter placement/removal and should improve over the next few days. He is negative for any hoarseness of his voice, tongue deviation, difficulty speaking/swallowing, unilateral headache, vision changes, facial droop, motor weakness, or sensory deficit. He is discharged today in medically stable condition. He will follow-up in the office as an outpatient in 2 to 4 weeks as scheduled. Physical Exam Const oriented x3 and no apparent distress HEENT normocephalic, head/scalp atraumatic, hearing grossly normal bilaterally, external ears normal and external nose normal Eyes EOMs intact bilaterally General Eye: normal appearance of both eyes Neck Neck Narrative: R neck incision with surgical glue intact, mild swelling. No ecchymosis, drainage, erythema. Resp normal respiratory effort Cardio regular rate and regular rhythm Extremity no clubbing, cyanosis or edema Skin no rashes or lesions noted and no wounds Weight / BMI Weight Weight: 259 lb 14.8 oz Body Mass Index (BMI) 37.2 ABG / Lab / Microbiology Data 06/14/23 04:50 06/07/23 09:14 Laboratory: Laboratory Results - last 24 hr 06/13/23 07:53: Activated Clotting Time 147 H 06/13/23 08:36: Activated Clotting Time 347 H 06/13/23 09:15: Activated Clotting Time 331 H 06/13/23 16:52: POC Glucose 173 H 06/13/23 20:21: POC Glucose 186 H 06/14/23 04:50: WBC 14.0 H, RBC 4.96, Hgb 15.2, Hct 43.9, MCV 88.5, MCH 30.6, MCHC 34.6, RDW Std Deviation 37.4, RDW Coeff of Laurita 11.8, Plt Count 148 L, MPV 9.6, Immature Gran % (Auto) 0.500, Neut % (Auto) 79.7 H, Lymph % (Auto) 13.6 L, [place] % (Auto) 5.9, Eos % (Auto) 0.1, Baso % (Auto) 0.2, Absolute Neuts (auto) 11.2 H, Absolute Lymphs (auto) 1.90, Nucleated RBC % 0 06/14/23 07:31: POC Glucose 110 H 06/14/23 11:45: POC Glucose 148 H D/C Instructions Discharge Diet: No restrictions Weight Bearing Status: Weight bearing as tolerated Lifting Restricted to (Lbs): 20 Lifting Restrictions: Do not lift greater than 20 pounds for 3 weeks Call your doctor if your incision/area has: Continuous Slow Oozing, Sudden Increased Bleeding and Foul Smelling Discharge Call your doctor if you observe: Fever of 101 or Higher and Uncontrolled pain Remove Dressing in: 1 day Additional Instructions: You have a small bandage over the site from which the surgical drain was tati clint. You may remove this bandage tomorrow. As long as there is no residual drainage, you may leave this open to air. If you do notice some continued drainage, you may re-cover with a Band-Aid. Your incision site is covered with surgical glue which will continue to protect it. The surgical glue will peel/flake off on its own over the next few weeks. Please do not pick at it. You may shower tomorrow. It is okay for soap and water to rinse over the incision site, pat to dry. Do not submerge the incision site in water such as to take a bath or go swimming etc. for 3 weeks. Do not lift greater than 20 pounds for 3 weeks. Otherwise, please continue with activity as tolerated. Do not drive until you can turn your head well enough to safely check your blind spots. I have prescribed a prescription pain medication oxycodone 5 mg tablets to be taken by mouth every 8 hours as needed for pain. This is an opioid pain medication and is to be taken only as directed Do not take in combination with any other prescription pain medications. You may take this in addition to Tylenol or ibuprofen as allowed. Follow-up in the office in 2 to 4 weeks. If an appointment has not already been scheduled then please contact the office at [phone] to make your appointment. Please call or return to the office sooner as needed. Please Follow Up With: Mel Bateman PA When: 07/06/2023 Meaningful Use Info Meaningful Use Diagnoses (Choose all that apply): None applicable Discharge Plan Admission Admit Date/Time: 06/13/23 05:31 Primary Reason for Your Visit: Right Carotid Endarterectomy Attending Provider: Reynaldo Mcallister Primary Care Provider: Gloria Fontana Instructions Additional Instructions / Restrictions: You have a small bandage over the site from which the surgical drain was removed. You may remove this bandage tomorrow. As long as there is no residual drainage, you may leave this open to air. If you do notice some continued drainage, you may re-cover with a Band-Aid. Your incision site is covered with surgical glue which will continue to protect it. The surgical glue will peel/flake off on its own over the next few weeks. Please do not pick at it. You may shower tomorrow. It is okay for soap and water to rinse over the incision site, pat to dry. Do not submerge the incision site in water such as to take a bath or go swimming etc. for 3 weeks. Do not lift greater than 20 pounds for 3 weeks. Otherwise, please continue with activity as tolerated. Do not drive until you can turn your head well enough to safely check your blind spots. I have prescribed a prescription pain medication oxycodone 5 mg tablets to be taken by mouth every 8 hours as needed for pain. This is an opioid pain medication and is to be taken only as directed Do not take in combination with any other prescription pain medications. You may take this in addition to Tyl enol or ibuprofen as allowed. Follow-up in the office in 2 to 4 weeks. If an appointment has not already been scheduled then please contact the office at [phone] to make your appointment. Please call or return to the office sooner as needed. Discharge Orders/Prescriptions Prescriptions: New oxycodone 5 mg Tablet 5 mg PO Q8H PRN PRN (Reason: Pain Score 4-10) 3 Days Qty: 9 0RF Continued Adult 50 Plus Probiotic 4 billion cell capsule 4,000 mmu cells PO DAILY simvastatin 40 mg tablet 40 mg PO QHS aspirin 81 mg tablet,delayed release (DR/EC) 81 mg PO DAILY cholecalciferol (vitamin D3) 50 mcg (2,000 unit) capsule 2,000 unit PO BID omega-3 fatty acids-fish oil [Fish Oil] 360-1,200 mg capsule 1 cap PO BID arginine HCl (L-arginine) 1,000 mg tablet 2,000 mg PO TID zinc 50 mg tablet 50 mg PO DAILY cetirizine [Zyrtec] 10 mg tablet 10 mg PO DAILY PRN (Reason: allergy symptoms) lisinopril 5 mg tablet 5 mg PO 1200 nitroglycerin 0.4 mg tablet, sublingual 0.4 mg sublingual Q5-15M PRN (Reason: chest pain) Patient Comments: place 1 tablet under the tongue if needed every 5 minutes for will... (REFER TO PRESCRIPTION NOTES). metformin 500 mg tablet 500 mg PO BID ascorbic acid (vitamin C) 1,000 mg tablet 1 g PO DAILY metoprolol tartrate 50 mg tablet 50 mg PO BID Qty: 180 3RF coenzyme Q10 [Co Q-10] 100 mg capsule 100 mg PO DAILY Disposition Disposition (needs filled in before D/C Order can be placed): Home, Self Care
--- NOTE | 2023-06-14 14:23 | CHAPLAIN ---
Type of Pastoral Visit _x__ Initial Visit ___ Follow-up Visit ___ On-call Visit ___ General Patient Visit ___ Spiritual Assessment ___ Family Conference ___ Bereavement ___ Rapid Response ___ Code Blue ___ Other (describe below) Pastoral Care Referral From _x__ Patient ___ Family ___ Nurse ___ Physician ___ Grant Specialist ___ Documentation Nurse ___ Other (describe below) Sacrament/Intervention _x__ Active listening ___ Anointing ___ Oriental Orthodox ___ Bereavement ___ Communion ___ Yamileth exploration ___ _x__ Life review _x__ Prayer ___ Reconciliation ___ Sacrament of Sick ___ Supportive presence ___ Wedding ___ Other (describe below) Pastoral Comments patient is feeling pretty good and is encouraged about going home today; spouse is with him; pt talks about his interests and hobbies; pt welcomes prayer for support
[2023-07-08 19:17] LABS: ACT Activated Clotting Time 331 sec (74-137)
[2023-07-08 19:17] LABS: ACT Activated Clotting Time 347 sec (74-137)
== END 2023-06-14 13:59 | disposition home or self-care (01) | DRG 39 ==
LOC: ACINP 08:53 → ICU 10:01
PROVIDERS: Anesthesiology; Admitting Provider Surgery Trauma Surgery; PCP Internal Medicine; Referring Provider Surgery Trauma Surgery; Visit Provider Surgery Trauma Surgery
PROC: 03CK0ZZ Extirpation of Matter from Right Internal Carotid Artery, Open Approach (ICD-10-PCS; CPT 35301; principal; 2023-06-13 07:10)
DX: I65.21 Occlusion and stenosis of right carotid artery (principal); E11.9 Type 2 diabetes mellitus without complications; E78.2 Mixed hyperlipidemia; I25.10 Atherosclerotic heart disease of native coronary artery without angina pectoris; H53.9 Unspecified visual disturbance; Z82.3 Family history of stroke; Z87.891 Personal history of nicotine dependence
CPT/HCPCS: 36415; 80048; 82962; 83036; 85025; 85027; 85347; 86850; 86900; 86901; 88304; 88311; 93005; 94668; 99406; A4648; J7030; J7120; J2405; J3490

== ENCOUNTER → 2023-12-20 | Outpatient (CLI) | payer MEDICARE, OTHER, SELFPAY ==
--- NOTE | 2023-12-20 08:41 | CDU_ITS ---
Reason For Study: S/P CEA Rt. Velocities/BP Lt. Velocities/BP Prox CCA 139.9/28.5 cm/sec. Prox CCA 120.5/21.7 cm/sec. Mid CCA 101.8/20.4 cm/sec. Mid CCA 103.0/10.8 cm/sec. Dist CCA 87.5/17.1 cm/sec. Dist CCA 100.8/15.1 cm/sec. Prox ICA 85.7/8.9 cm/sec. Prox ICA 120.5/21.7 cm/sec. Mid ICA 77.2/20.8 cm/sec. Mid ICA 93.3/17.5 cm/sec. Dist ICA 87.1/23.2 cm/sec. Dist ICA 110.7/32.1 cm/sec. Rt. ICA/CCA = 87.1/101.8=0.9. Lt. ICA/CCA = 120.5/103.0=1.2. Prox ECA 223.7/21.5 cm/sec. Prox ECA 127.1/6.4 cm/sec. Rt. Vert. 56.6/16.0 cm/sec. Lt. Vert. 45.9/10.0 cm/sec. Right Extracranial There is heterogeneous, irregular atherosclerotic plaque noted in the right common carotid artery. There is intimal thickening but no significant atherosclerotic plaque noted in the right internal carotid artery. There is homogeneous, smooth atherosclerotic plaque noted in the right external carotid artery. Antegrade flow is noted in the right vertebral artery. Left Extracranial There is intimal thickening but no significant atherosclerotic plaque noted in the left common carotid artery. There is heterogeneous, irregular atherosclerotic plaque noted in the left internal carotid artery. There is intimal thickening but no significant atherosclerotic plaque noted in the left external carotid artery. Antegrade flow is noted in the left vertebral artery. Procedure Carotid Duplex [id number]. This is a Carotid Duplex examination using B-mode, color flow and specral Doppler. Exam performed in department. VL/Carotid Duplex Ultrasound Interpretation Summary Normal right extracranial internal carotid. Mild (<50%) stenosis left extracranial internal carotid. Patent and antegrade vertebrals bilaterally. Ordering Physician: Mel Bateman Referring Physician: Gloria Fontana Performed By: Sylwia Warren, DEMOND, RVT
== END | disposition home or self-care (01) ==
LOC: CVS 08:40
PROVIDERS: PCP Internal Medicine; Referring Provider Physician Assistant; Visit Provider Physician Assistant
DX: I65.21 Occlusion and stenosis of right carotid artery (principal); Z48.812 Encounter for surgical aftercare following surgery on the circulatory system
CPT/HCPCS: 93880

== ENCOUNTER → 2024-07-02 | Outpatient (CLI) | payer MEDICARE, OTHER, SELFPAY ==
--- NOTE | 2024-07-02 08:54 | ECHOD_ITS ---
Reason For Study Reason For Study: SYSTOLIC MURMUR Procedure This was a 2D Doppler, Color Flow transthoracic echocardiogram. The study was technically difficult. Exam performed in department. Left Ventricle Normal LV size. Mild concentric left ventricular hypertrophy. The left ventricular ejection fraction is 65 %. Stage 1 diastolic dysfunction. Right Ventricle Normal right ventricle. Atria The left and right atria are normal. Mitral Valve There is Moderate focal posterior mitral annular calcification. Mild (1+) mitral valve insufficiency. Tricuspid Valve Trivial tricuspid valve insufficiency. Unable to estimate RV systolic pressure due to insufficient tricuspid regurgitant envelope. Aortic Valve Aortic valve not well-visualized. Mean peak gradient 13.8 mmHg. Consider mild aortic valve stenosis. Pulmonic Valve The pulmonic valve is not well visualized. Great Vessels The aortic root is not well visualized. Pericardium/Pleural Epicardial fat. MMode/2D Measurements & Calculations IVSd: 1.1 cm LAV(MOD-bp): 48.4 ml LVAd ap4: 32.1 cm2 LVPWd: 1.2 cm LAV(MOD-bp) Indexed: 21.2 ml/m2 LVLd ap4: 8.9 cm LAV(MOD-sp2): 46.9 ml EDV(MOD-sp4): 97.8 ml LAV(MOD-sp4): 50.7 ml EDV(sp4-el): 98.3 ml LVAs ap4: 15.1 cm2 LVLs ap4: 7.1 cm ESV(MOD-sp4): 29.7 ml ESV(sp4-el): 27.2 ml EF(MOD-sp4): 69.6 % EF(sp4-el): 72.3 % SV(MOD-sp4): 68.1 ml SV(sp4-el): 71.1 ml LA A4 area: 18.6 cm2 SI(MOD-sp4): 29.8 ml/m2 RA A4 area: 15.9 cm2 Time Measurements MV dec time: 0.29 sec Doppler Measurements & Calculations MV E max akil: 123.2 cm/sec Lat Peak E' Akil: 7.0 cm/sec Med Peak E' Akil: 12.2 cm/sec MV A max akil: 119.0 cm/sec E/E' lat: 17.6 E/E' med: 10.1 MV E/A: 1.0 MV V2 max: 126.4 cm/sec MV dec slope: 424.4 cm/sec2 Ao V2 max: 251.2 cm/sec MV max P.4 mmHg Ao max P.2 mmHg MV V2 mean: 77.2 cm/sec Ao V2 mean: 172.5 cm/sec MV mean P.7 mmHg Ao mean P.8 mmHg MV V2 VTI: 48.8 cm Ao V2 VTI: 57.1 cm AV (velocity ratio): 0.60 LV V1 max: 137.4 cm/sec LV V1 max P.6 mmHg LV V1 mean P.2 mmHg LV V1 mean: 94.2 cm/sec LV V1 VTI: 34.1 cm ECHO/Echo Complete Interpretation Summary Technically difficult study. Parasternal images uninterpretable. Mild concentric left ventricular hypertrophy. The left ventricular ejection fraction is 65 %. Stage 1 diastolic dysfunction. There is Moderate focal posterior mitral annular calcification. Mild (1+) mitral valve insufficiency. Aortic valve not well-visualized. Mean peak gradient 13.8 mmHg. Consider mild a ortic valve stenosis. Ordering Physician: Gloria Fontana Referring Physician: Gloria Fontana Performed By: Bea Hassan RCS
== END | disposition home or self-care (01) ==
PROVIDERS: PCP Internal Medicine; Referring Provider Internal Medicine; Visit Provider Internal Medicine
DX: R01.1 Cardiac murmur, unspecified (principal)
CPT/HCPCS: 93306

== ENCOUNTER → 2024-07-03 | Outpatient (CLI) | payer MEDICARE, OTHER, SELFPAY ==
--- NOTE | 2024-07-03 08:55 | CDU_ITS ---
Reason For Study Reason For Study: S/P R CEA; 6 MONTH F/U Rt. Velocities/BP Lt. Velocities/BP Prox CCA 96.4/15.1 cm/sec. Prox CCA 121.6/19.4 cm/sec. Mid CCA 92.0/19.5 cm/sec. Mid CCA 116.2/21.2 cm/sec. Dist CCA 79.7/14.6 cm/sec. Dist CCA 97.9/15.7 cm/sec. Prox ICA 69.5/12.8 cm/sec. Prox ICA 119.8/21.2 cm/sec. Mid ICA 87.5/18.1 cm/sec. Mid ICA 128.9/24.8 cm/sec. Dist ICA 89.3/21.7 cm/sec. Dist ICA 107.0/26.7 cm/sec. Rt. ICA/CCA = 89.3/92.0=1.0. Lt. ICA/CCA = 128.9/116.2=1.1. Prox ECA 169.1/6.6 cm/sec. Prox ECA 128.9/6.6 cm/sec. Rt. Vert. 31.1/8.4 cm/sec. Lt. Vert. 83.1/17.1 cm/sec. Right Extracranial There is heterogeneous, irregular atherosclerotic plaque noted in the right common carotid artery. There is homogeneous, smooth atherosclerotic plaque noted in the right internal carotid artery. There is intimal thickening but no significant atherosclerotic plaque noted in the right external carotid artery. Antegrade flow is noted in the right vertebral artery. Left Extracranial There is intimal thickening but no significant atherosclerotic plaque noted in the left common carotid artery. There is heterogeneous, irregular atherosclerotic plaque noted in the left internal carotid artery. There is intimal thickening but no significant atherosclerotic plaque noted in the left external carotid artery. Antegrade flow is noted in the left vertebral artery. Procedure Carotid Duplex [id number]. This is a Carotid Duplex examination using B-mode, color flow and specral Doppler. Exam performed in department. VL/Carotid Duplex Ultrasound Interpretation Summary Mild (<50%) stenosis right extracranial internal carotid. Moderate (50-69%) stenosis left extracranial internal carotid. Patent and antegrade vertebrals bilaterally. Ordering Physician: Mel Bateman Referring Physician: Gloria Fontana Performed By: Sylwia Warren, DEMOND, RVT
== END | disposition home or self-care (01) ==
LOC: CVS 08:55
PROVIDERS: PCP Internal Medicine; Referring Provider Physician Assistant; Visit Provider Physician Assistant
DX: Z48.812 Encounter for surgical aftercare following surgery on the circulatory system (principal)
CPT/HCPCS: 93880

== ENCOUNTER → 2025-03-11 | Outpatient (CLI) | payer MEDICARE, OTHER, SELFPAY ==
[2025-03-11 11:58] LABS: Hematocrit 48.1 % (40-54); Hemoglobin 16.4 g/dL (13.0-16.5); Immature Granulocytes Count 0.030 X10^3/uL (0.0-0.0); Mean Corp Hgb Conc 34.1 g/dL (32-36); Mean Corpuscular Volume 89.7 fL (80-94); Mean Platelet Vol. 10.0 fl (6.2-12.0); NRBC Flagged by Analyzer 0 % (0-5); Platelet Count 164 K/mm3 (150-450); RBC Distribution Width CV 12.6 % (11.6-14.6); RBC Distribution Width SD 41.3 fl (35.1-43.9); Red Blood Count 5.36 M/mm3 (4.6-6.2); White Blood Count 6.3 K/mm3 (4.4-11.0)
[2025-03-11 12:32] LABS: Cholesterol 116 mg/dL (<=200); Low Density Lipoprotein Calc. 49 mg/dL; Triglycerides 81 mg/dL; Very Low Density Lipoprotein 16 mg/dL (5-40); cholesterol:hdl ratio screen 2.28
[2025-03-11 12:43] LABS: AST(SGOT) 29 U/L (<=37); Alanine Aminotransfer ALT/SGPT 24 U/L (<=46); Albumin, Serum 4.5 g/dL (3.4-4.8); Alkaline Phosphatase 75 U/L (40-129); Anion Gap 12 (5-15); BUN 15 mg/dL (4-19); BUN/Creat Ratio 16.1 RATIO (10-20); Calcium,Total 9.8 mg/dL (7.6-11.0); Carbon Dioxide 24.9 mmol/L (21.0-32.0); Chloride 103 mmol/L (98-108); Globulin 2.6 g/dL (2.2-4.2); Glucose 134 mg/dL (70-99); Potassium 4.1 mmol/L (3.3-5.1)
== END | disposition home or self-care (01) ==
LOC: CIMLAB 10:12
PROVIDERS: PCP Internal Medicine; Referring Provider Internal Medicine; Visit Provider Internal Medicine
DX: E11.59 Type 2 diabetes mellitus with other circulatory complications (principal); E78.2 Mixed hyperlipidemia; D69.6 Thrombocytopenia, unspecified
CPT/HCPCS: 36415; 80053; 80061; 83036; 85025

== ENCOUNTER → 2025-03-12 | Outpatient (CLI) | payer MEDICARE, OTHER, SELFPAY ==
[2025-03-12 12:59] LABS: Creatinine, Urine (random) 102.00 mg/dL (39.00-259.00); Microalbumin,Random Urine < 12.0 mg/L (<20 mg/L)
== END | disposition home or self-care (01) ==
LOC: CIMLAB 11:11
PROVIDERS: PCP Internal Medicine; Referring Provider Internal Medicine; Visit Provider Internal Medicine
DX: E11.59 Type 2 diabetes mellitus with other circulatory complications (principal); E78.2 Mixed hyperlipidemia; D69.6 Thrombocytopenia, unspecified
CPT/HCPCS: 82043; 82570